=== PATIENT | female | born 1955 | race Caucasian/White ===

== ENCOUNTER → 2018-01-08 | Outpatient (CLI) | payer MEDICARE ==
[~2018-01-08] MED LIST: ABILIFY5 MG PO; AMITIZA24 MCG PO; AMLODIPINE BESYL5 MG PO; ATENOLOL50 MG PO; BENTYL10 MG PO; BUSPIRONE HCL10 MG PO; CATAPRES-TTS 11 EACH TD; CITALOPRAM HBR40 MG PO; CLOBETASOL PROP15 G1; CLONAZEPAM0.5 MG PO; CYMBALTA60 MG PO; ENALAPRIL 20 MG; ENALAPRIL MALEA20 MG PO; ENALAPRIL PO; FENOFIBRATE200 MG PO; FUROSEMIDE40 MG PO; LOVAZA1 GM PO; MELOXICAM15 MG PO; NEURONTIN300 MG PO; NORVASC10 MG PO; OXYCODONE HCL30 MG PO; OXYMORPHONE HCL10 MG PO; PERCOCET 10-321 EACH; POTASSIUM CHLO20 ME1 PO; PRILOSEC OTC20 MG PO; PROAIR HFA INH8.5 GM INH; ROPINIROLE HCL0.5 MG PO; SUBOXONE 8 MG-1 EAC2 SL; VASOTEC10 M1 PO; ZOFRAN4 MG PO; buspar; suboxone
--- NOTE | 2018-01-08 14:27 | Diagnostic Imaging Report ---
TECHNIQUE: Magnetic resonance imaging of the RIGHT KNEE was performed WITHOUT injected contrast. HISTORY: Right knee pain COMPARISON: None available. FINDINGS: LIGAMENTS AND TENDONS: ACL: Intact PCL: Intact Collateral ligaments: Intact Iliotibial band: Unremarkable Popliteal tendon: Intact Extensor mechanism: Intact JOINT: Menisci: Medial: Partial medial meniscectomy with remnant posterior horn and root attachment. Mild meniscal extrusion. Probable free margin horizontal tear of the posterior body/horn coronal image 12. Lateral: Probable free margin horizontal tear of the body/posterior horn coronal image 13. Articular Cartilage: Medial Compartment: Diffuse partial thickness cartilage loss with high-grade erosion at the medial joint line. Lateral Compartment: Diffuse partial thickness cartilage loss. Patellofemoral Compartment: No focal defect. Joint Fluid: Trace joint effusion. BONE: No focal or infiltrative bone marrow replacing abnormality. No acute fracture. SOFT TISSUES: Otherwise, unremarkable. IMPRESSION: Medial meniscus partial meniscectomy predominantly involving the posterior horn with remnant meniscal tissue. Medial and lateral meniscus probable horizontal free margin tearing of the body and posterior horn. Medial tibiofemoral compartment predominant cartilage loss with subchondral edema at the joint line. Signed by: Dr. Speedy Hauser M.D. on 01/08/2018 2:24 PM
== END ==
LOC: MRI 13:26
PROVIDERS: ATTEND Specialist
DX: S83.241A Other tear of medial meniscus, current injury, right knee, initial encounter (principal)

== ENCOUNTER 2018-06-07 15:44 | Inpatient (IN) | payer MEDICARE ==
[~2018-06-07] VITALS: Ht 167.6 cm; Wt 98.9 kg
[2018-06-07] MEDS ORDERED: ALBUTEROL SULF 0.083% NEB SOLN 3 ML NEB NEB STA (16:05)
[2018-06-07] MEDS ORDERED: IPRATROPIUM BROMIDE 0.02% 2.5 ML NEB NEB STA (16:05)
[2018-06-07] MEDS ORDERED: METHYLPREDNISOLONE SOD SUCC 125 MG/2ML VIAL IV ONE (16:15)
[2018-06-07] MEDS ORDERED: SODIUM CHLORIDE FLUSH 10 ML SYR INJ PRN (16:15)
[2018-06-07 16:22] LABS: BASOPHILS # (AUTO) 0.1 (0.0-0.1); BASOPHILS % 0.7 % (0.0-1.0); EOSINOPHILS # (AUTO) 0.3 (0.0-0.4); EOSINOPHILS % 2.9 % (0.0-6.0); HEMATOCRIT 31.6 % (34.2-44.1); HEMOGLOBIN 10.1 g/dL (12.0-16.0); LYMPHOCYTES % 31.8 % (18.0-39.1); MEAN CORPUSCULAR HEMOGLOBIN 30.4 pg (28-32); MEAN CORPUSCULAR VOLUME 95.2 fL (81-99); MONOCYTES # (AUTO) 0.7 (0.2-0.8); MONOCYTES % 6.9 % (4.4-11.3); NEUTROPHILS # (AUTO) 5.4 (2.1-6.9); NEUTROPHILS % 57.1 % (38.7-80.0); PLATELET COUNT 442 x10e3/uL (140-360); RED BLOOD COUNT 3.32 x10e6/uL (3.6-5.1); RED CELL DISTRIBUTION WIDTH 15.1 % (11.7-14.4)
[2018-06-07 16:37] LABS: ALBUMIN 3.4 g/dL (3.5-5.0); ANION GAP 12.5 mmol/L (8-16); CALCIUM 9.6 mg/dL (8.4-10.2); CREATININE, SERUM 1.03 mg/dL (0.57-1.11); MAGNESIUM 2.2 MG/DL (1.3-2.1); POTASSIUM 4.5 mmol/L (3.5-5.1)
[2018-06-07] MEDS ORDERED: SODIUM CHLORIDE 0.9% 500ML 500 ML ONE (16:38)
[2018-06-07 16:43] LABS: CREATINE KINASE MB 1.7 ng/mL (0-5.0)
[2018-06-07] MEDS ORDERED: SODIUM CHLORIDE 0.9% 500ML 500 ML IV ONE (16:45)
--- NOTE | 2018-06-07 17:14 | Diagnostic Imaging Report ---
History:Weakness Comparison studies:None Technique: Axial images were obtained from the skull base to the vertex. Coronal and sagittal images reconstructed from the axial data. Intravenous contrast: None Dose modulation, iterative reconstruction, and/or weight based adjustment of the mA/kV was utilized to reduce the radiation dose to as low as reasonably achievable. Findings: Scalp/skull: No abnormalities. Extra-axial spaces: No masses. No fluid collections. Brain sulci: Mildly prominent. Ventricles: Mild compensatory dilatation. No hydrocephalus. Parenchyma: Few hypodensities in the supratentorial white matter are small vessel ischemic changes. No masses, hemorrhage, acute or chronic cortical vascular insults. Sellar/suprasellar region: No abnormalities. Craniocervical junction: Patent foramen magnum. No Chiari one malformation. Incidental findings: Atherosclerotic calcifications in the carotid siphons . Impression: No acute abnormalities. Chronic findings: 1. Mild generalized volume loss. 2. Mild supratentorial white matter small vessel ischemic changes. Signed by: DR Doroteo Contreras M.D. on 06/07/2018 5:10 PM
[2018-06-07] MEDS ORDERED: LISINOPRIL10 MG PO (17:28)
[2018-06-07] MEDS ORDERED: ALDACTONE25 MG PO (17:28)
[2018-06-07] MEDS ORDERED: METOPROLOL SUCC25 MG PO (17:28)
[2018-06-07] MEDS ORDERED: XARELTO20 MG PO (17:28)
[2018-06-07] MEDS ORDERED: DILTIAZEM HCL60 MG PO (17:28)
[2018-06-07] MEDS ORDERED: AMIODARONE HCL200 MG PO (17:28)
[2018-06-07] MEDS ORDERED: SUBOXONE 8 MG-1 EAC2 (17:33)
[2018-06-07] MEDS ORDERED: MYRBETRIQ50 MG PO (17:33)
[2018-06-07 17:50] LABS: ABG PCO2 50 mmHg (41-51); ABG PH 7.35 (7.31-7.41); ABG PO2 69 mmHg (80-105)
[2018-06-07 17:51] LABS: ABG HCO3 28 mmol/L (23-28)
[2018-06-07] MEDS ORDERED: DIPHENHYDRAMINE HCL INJ 50 MG/ML VIAL IV PRN (18:00)
[2018-06-07] MEDS ORDERED: ACETAMINOPHEN 325 MG TAB PO PRN (18:00)
[2018-06-07] MEDS ORDERED: ZOLPIDEM TARTRATE 5 MG TAB PO PRN (18:00)
[2018-06-07] MEDS ORDERED: ENALAPRILAT IV INJ 1.25 MG/ML VIAL IV PRN (18:00)
[2018-06-07] MEDS ORDERED: ONDANSETRON HCL INJ 2 MG/ML VIAL IV PRN (18:00)
[2018-06-07] MEDS ORDERED: CLONIDINE HCL 0.1 MG TAB PO PRN (18:00)
[2018-06-07] MEDS ORDERED: MORPHINE SULFATE INJ 4 MG/ML INJ IV PRN (18:00)
[2018-06-07] MEDS ORDERED: ALBUTEROL/IPRATROPIUM 3 ML NEB NEB PRN (18:00)
--- NOTE | 2018-06-07 18:02 | Diagnostic Imaging Report ---
Examination: Single AP view of the chest. COMPARISON: Chest 2 views 03/25/2018 INDICATION: Shortness of breath IMPRESSION: 1. Lines and Tubes: None 2. Lungs are mildly hypoinflated. Stable blunting of the right lateral costophrenic sulcus, system with previously visualized scarring. No consolidation. 3. Cardiomediastinal silhouette is normal. Central vascular crowding. 4. No acute bony abnormalities. Signed by: Dr. Herbie Ochoa M.D. on 06/07/2018 5:59 PM
[2018-06-07] MEDS ORDERED: CLONAZEPAM 0.5 MG TAB PO PRN (18:45)
[2018-06-07] MEDS: CEFTRIAXONE SOD 1 GM VIAL IV SCH (19:06)
[2018-06-07] MEDS: AZITHROMYCIN 500MG/SOD CHL 0.9% 250ML BAG IV SCH (19:09)
[2018-06-07 19:22] LABS: CREATINE KINASE 81 IU/L (29-168)
[2018-06-07 19:43] VITALS: BP 119/67
[2018-06-07 19:45] VITALS: BP 119/67
[2018-06-07] MEDS ORDERED: GABAPENTIN 300 MG CAP PO SCH (21:00)
[2018-06-07] MEDS: FENOFIBRATE 145 MG TAB PO SCH (21:00)
[2018-06-07] MEDS: ROPINIROLE HCL 0.25 MG TAB PO SCH (21:00)
[2018-06-07] MEDS: DULOXETINE HCL 30 MG DELAYED RELEASE PO SCH (21:00)
[2018-06-07] MEDS: METHYLPREDNISOLONE SOD SUCC 125 MG/2ML VIAL IV SCH (21:45)
[2018-06-07] MEDS ORDERED: METHYLPREDNISOLONE SOD SUCC 125 MG/2ML VIAL IV SCH (22:00)
--- NOTE | 2018-06-07 23:36 | Consultation ---
DATE OF CONSULTATION: June 07, 2018 PULMONARY/CRITICAL CARE CONSULTATION REFERRING PHYSICIAN: Dr. Leonardo Peng. CHIEF COMPLAINT: Worsening dyspnea and confusion. HISTORY OF PRESENT ILLNESS: The patient is a 62-year-old woman. She has a history of severe COPD. She uses oxygen at home as well as nebulizers and bronchodilators. She required hospitalization at [facility] in March and had subsequent stay at [facility]. She now returns complaining of worsening dyspnea and congestion. She is coughing up some discolored phlegm. She also notes swelling in her legs and some confusion. She does not have any chest pain. PAST MEDICAL HISTORY: 1. COPD as noted above. 2. Obstructive sleep apnea with inability to tolerate CPAP. 3. Chronic back pain. 4. Peripheral vascular disease. ALLERGIES: THE PATIENT IS ALLERGIC TO SULFA AND CONTRAST DYE. SURGICAL HISTORY: Noncontributory. SOCIAL HISTORY: The patient quit smoking. She does not drink alcohol. FAMILY HISTORY: Noncontributory. REVIEW OF SYSTEMS: The patient reports some confusion. She does not complain of headache or sore throat. She has no neck pain. She denies any chest pain. She notes worsening dyspnea and congestion. Her abdomen is not painful. She has no nausea or vomiting. She does have leg swelling. She has diffuse weakness, but no focal complaints. PHYSICAL EXAMINATION: VITAL SIGNS: The blood pressure is 98/64 and the pulse ox is 95% on 3 L. Her pulse rate is 65 and she is afebrile. HEENT: Shows no facial swelling or erythema. The nasal mucosa is normal. The oropharynx is normal. LYMPHATIC: Shows no submandibular, cervical or supraclavicular adenopathy. CARDIAC: Reveals regular rate and rhythm with normal S1 and S2. There are no murmurs or rubs. LUNGS: Auscultation reveals rhonchorous breath sounds bilaterally. There is no wheezing. ABDOMEN: Soft, nontender. There is no rebound or guarding. EXTREMITIES: Shows 1 to 2+ leg edema. NEUROLOGIC: Shows some weakness, but no focal abnormalities. LABORATORY DATA: The white blood cell count is 9.5 and hemoglobin is 10.1. The platelet count is 442. The BUN to creatinine ratio is 23 to 1.03. The other electrolytes are within normal limits. The magnesium is 2.2. The blood gas is 7.35 with a CO2 of 50 and an O2 69. The bicarbonate is 28. RADIOGRAPHIC DATA: Chest x-ray shows cardiomegaly and some blunting of the right costophrenic angle. There are no acute abnormalities. CT scan of the head shows some generalized volume loss and some supratentorial small vessel changes. IMPRESSION: 1. Jtmjy-lt-rzgjuhz respiratory failure. 2. Chronic obstructive pulmonary disease with acute exacerbation. 3. Cor pulmonale. 4. Atrial fibrillation in the past. PLAN: 1. IV Solu-Medrol and bronchodilators. 2. Antibiotics. 3. Consider diuretics for leg edema and cor pulmonale. 4. Physical therapy. 5. Dietary evaluation. 6. DVT prophylaxis. Job#: [id number]
[2018-06-07 23:51] VITALS: BP 92/53
[2018-06-08] VITALS (59 sets, daily range): BP systolic 76–153; BP diastolic 42–101
[2018-06-08 01:41] LABS: CREATINE KINASE MB 1.3 ng/mL (0-5.0)
[2018-06-08] MEDS ORDERED: SODIUM CHLORIDE 0.9% 250ML 250 ML ONE (05:14)
[2018-06-08] MEDS ORDERED: SODIUM CHLORIDE 0.9% 1000ML 1,000 ML IV SCH (05:15)
[2018-06-08] MEDS ORDERED: SODIUM CHLORIDE 0.9% 250ML 250 ML IV ONE (05:15)
[2018-06-08] MEDS ORDERED: ACETAMINOPHEN 325 MG TAB PO PRN (05:30)
[2018-06-08 05:40] LABS: BASOPHILS % 0.2 % (0.0-1.0); HEMATOCRIT 30.6 % (34.2-44.1); HEMOGLOBIN 9.9 g/dL (12.0-16.0); LYMPHOCYTES # (AUTO) 1.3 (1.0-3.2); LYMPHOCYTES % 15.2 % (18.0-39.1); MEAN CORPUSCULAR HGB CONC 32.4 g/dL (31-35); MEAN CORPUSCULAR VOLUME 95.9 fL (81-99); MONOCYTES # (AUTO) 0.1 (0.2-0.8); NEUTROPHILS % 82.9 % (38.7-80.0); PLATELET COUNT 435 x10e3/uL (140-360); RED BLOOD COUNT 3.19 x10e6/uL (3.6-5.1); RED CELL DISTRIBUTION WIDTH 14.8 % (11.7-14.4)
[2018-06-08 05:53] LABS: AMPHETAMINES SCREEN,URINE NEGATIVE (NEGATIVE); BENZODIAZEPINES SCREEN,URINE NEGATIVE (NEGATIVE); PHENCYCLIDINE SCREEN,URINE NEGATIVE (NEGATIVE)
[2018-06-08 06:08] LABS: ALANINE AMINOTRANSFERASE < 6 IU/L (0-55); ALBUMIN/GLOBULIN RATIO 0.9 (0.8-2.0); ALKALINE PHOSPHATASE 48 IU/L (40-150); ANION GAP 9.4 mmol/L (8-16); BLOOD UREA NITROGEN 18 mg/dL (7-26); BUN/CREATININE RATIO 24 (6-25); CALCIUM 9.3 mg/dL (8.4-10.2); CARBON DIOXIDE 30 mmol/L (22-29); CHLORIDE 103 mmol/L (98-107); CREATININE, SERUM 0.76 mg/dL (0.57-1.11); EST GLOMERULAR FILTRATION RATE > 60 ML/MIN (60-); GLUCOSE 160 mg/dL (74-118); POTASSIUM 4.4 mmol/L (3.5-5.1); SODIUM 138 mmol/L (136-145)
[2018-06-08] MEDS ORDERED: SODIUM CHLORIDE 0.9% 1000ML 1,000 ML IV ONE (06:18)
--- NOTE | 2018-06-08 06:19 | Diagnostic Imaging Report ---
EXAMINATION: CHEST SINGLE (PORTABLE) INDICATION: Shortness of breath ^SOB ^Y COMPARISON: 06/07/2018 FINDINGS: AP view TUBES and LINES: None. LUNGS: Lungs are well inflated. Increased right basilar airspace opacity. There is no evidence of pulmonary edema. PLEURA: Stable blunting of the right costophrenic sulcus, likely representing scarring. HEART AND MEDIASTINUM: The cardiomediastinal silhouette is unremarkable. BONES AND SOFT TISSUES: No acute osseous lesion. Faintly visualized thoracic fusion hardware. Soft tissues are unremarkable. UPPER ABDOMEN: No free air under the diaphragm. IMPRESSION: Increased right basilar airspace opacity likely representing atelectasis with developing pneumonia not excluded. Signed by: DR. Lenin Reid MD on 06/08/2018 6:16 AM
[2018-06-08 06:25] LABS: MAGNESIUM 2.2 MG/DL (1.3-2.1); PHOSPHORUS 3.7 MG/DL (2.3-4.7)
[2018-06-08 06:29] LABS: CLARITY,URINE HAZY (CLEAR); COLOR,URINE YELLOW (YELLOW)
[2018-06-08 06:30] LABS: BACTERIA,URINE FEW /HPF; BILIRUBIN,URINE NEGATIVE (NEGATIVE); EPITHELIAL CELLS,URINE FEW /LPF; KETONES,URINE NEGATIVE (NEGATIVE); LEUKOCYTE ESTERASE ,URINE NEGATIVE (NEGATIVE); NITRITE,URINE NEGATIVE (NEGATIVE); PROTEIN,URINE DIPSTICK TRACE (NEGATIVE); URINE UROBILINOGEN 0.2 mg/dL (0.2 - 1); WBC,URINE (MAN) 0-5 /HPF (0-5)
--- NOTE | 2018-06-08 07:10 | History and Physical ---
I am covering for Dr. Peng. HISTORY OF PRESENT ILLNESS: Ms. Kraus is an 62-year-old female with history apparently of COPD, sleep apnea, chronic back pain that came to the emergency room, complained of shortness of breath and dyspnea. She also was coughing, have lower extremity edema and patient started apparently getting confused. PAST MEDICAL HISTORY: She has COPD, chronic back pain, peripheral vascular disease, obstructive sleep apnea, but she has not been able to tolerate CPAP. ALLERGIES: SHE IS ALLERGIC TO DYE AND SULFA. SOCIAL HISTORY: She quit smoking a couple of months ago. She does not drink alcohol. She lives at home by herself apparently. PHYSICAL EXAMINATION: Today. VITAL SIGNS: I was called because blood pressure started going down and oxygenation was not good, so patient was transferred to ICU. I am seeing the patient in the ICU right now. She is on BiPAP. Blood pressure still low 86/58. Heart rate is around 86 per minute. Oxygenation 96%. HEART: Regular rate. LUNGS: Decreased breath sounds. ABDOMEN: Distended and soft. LOWER EXTREMITIES: Bilateral edema. NEURO: Since patient is on BiPAP, it is very difficult to evaluate her mental status, but as per nurse on the floor, patient was also a little confused. BLOOD WORK: White count 8.38, hemoglobin 9.9, hematocrit 30.6. Potassium 4.4, creatinine 0.76, glucose 160, magnesium 2.2. First sets of cardiac enzymes negative. Second set is pending. Toxicology screen negative. Urine did not show any white blood cells. Blood cultures and urine cultures are pending. Head CT done yesterday shows no acute findings. Chest x-ray done today shows increased right basilar airspace opacity representing atelectasis with developing pneumonia not excluded. ASSESSMENT AND PLAN 1. Ivsyl-tm-fvagnew respiratory failure on the bypass. 2. Chronic obstructive pulmonary disease exacerbation. 3. Cor pulmonale. 4. Probably pneumonia. 5. History of atrial fibrillation. 6. Chronic back pain. PLAN: At present time with this patient is continue BiPAP. Continue to monitor respiratory status, IV steroids, neb treatments. Continue IV antibiotics, diuresis for lower extremity edema and cor pulmonale. DVT and ulcer prophylaxis. The overall prognosis of the patient is guarded especially due to respiratory condition and impending sepsis. I spent more than 40 minutes examining patient, reviewing emergency room reports, chest x-rays, some lab work. Like I said, the overall prognosis of the patient remains guarded. Job#: [id number] CQ
[2018-06-08 07:15] LABS: CREATINE KINASE MB 1.2 ng/mL (0-5.0)
[2018-06-08] MEDS: MIRABEGRON 50 MG PO SCH (09:00)
[2018-06-08] MEDS: METHYLPREDNISOLONE SOD SUCC 125 MG/2ML VIAL IV SCH ×2 (09:00→21:42)
[2018-06-08 09:06] LABS: ABG PCO2 61 mmHg (41-51); ABG PO2 85 mmHg (80-105)
[2018-06-08 09:07] LABS: ABG HCO3 30 mmol/L (23-28)
[2018-06-08] MEDS: OMEGA 3 POLYUNSAT FATTY ACIDS 1000 MG SOFTGEL PO SCH (09:20)
[2018-06-08] MEDS: RIVAROXABAN 20 MG TABLET PO SCH (09:20)
[2018-06-08] MEDS: AMIODARONE HCL 200 MG TAB PO SCH (09:20)
[2018-06-08] MEDS: FAMOTIDINE 20 MG/2 ML VIAL IV SCH ×2 (09:20→17:00)
[2018-06-08] MEDS: SPIRONOLACTONE 25 MG TAB PO SCH (09:20)
[2018-06-08] MEDS: IBUPROFEN 200 MG TAB PO PRN (12:58)
--- NOTE | 2018-06-08 14:55 | Progress Note ---
DATE: June 08, 2018 PULMONARY/CRITICAL CARE PROGRESS NOTE SUBJECTIVE: Patient was more confused this morning and had low blood pressure. She was transferred to the ICU and started on BiPAP. Her repeat ABG showed pH of 7.3 with a CO2 of 60. PHYSICAL EXAMINATION VITALS: The patient is now in normal sinus rhythm with a rate of 74. Her blood pressure has been ranging from 80/40 to 99/52. Her oxygen saturation is 93%. HEENT: No facial swelling or erythema. The oropharynx is normal. LYMPHATIC: No submandibular, cervical or supraclavicular adenopathy. CARDIAC: Exam reveals a regular rate and rhythm with normal S1 and S2. LUNGS: Auscultation of the lungs reveals clear breath sounds bilaterally. There is no wheezing. ABDOMEN: Soft. Nontender. There is no rebound or guarding. There is 2+ leg edema. IMPRESSION 1. Ioklc-cs-dhkeexe respiratory failure. 2. Chronic obstructive pulmonary disease with acute exacerbation. 3. Chronic cor pulmonale with leg edema. 4. Toxic metabolic encephalopathy. PLAN 1. Continue BiPAP. 2. Hold sedatives and narcotics, which may be worsening her mental status. 3. Continue Solu-Medrol. 4. Continue bronchodilators and antibiotics. 5. Greater than 35 minutes in direct critical care time during 2 separate visits today, one at 8:30 a.m. and one at 2:15 p.m. 6. Case discussed with the patient, nursing staff and neurology. Job#: [id number]
--- NOTE | 2018-06-08 15:24 | Consultation ---
DATE OF CONSULTATION: June 08, 2018 CARDIOLOGY CONSULTATION REASON FOR CONSULTATION: Heart failure and atrial fibrillation. HISTORY OF PRESENT ILLNESS: Ms. Kraus is a 62-year-old woman with a history of morbid obesity, smoking, COPD, paroxysmal atrial fibrillation, chronic venous insufficiency to the lower extremities, hypertension, who presents to [facility] via the emergency department with an episode of shortness of breath. She is also describing intermittent episodes of confusion, which have been ongoing over the last several days. She is currently undergoing evaluation by neurology for this. She was admitted to the intensive care unit with shortness of breath and hypoxic respiratory distress with some improvement in symptoms after initiation of medical therapy. She was put on antibiotics and inhaler therapy. Her blood pressure this morning is on the low side with some readings of systolic in the 80s to 90s. She is currently in sinus rhythm. She denies any chest pain or shortness of breath. When asked about her current complaints, she is repetitively saying she does not feel well, but is unable to specify her symptoms more clearly. REVIEW OF SYSTEMS: A 12-system review negative, except for as noted above. ALLERGIES: SULFA. PAST MEDICAL HISTORY: As per HPI. SOCIAL HISTORY: Smoking. No alcohol or drugs. FAMILY HISTORY: Noncontributory. PHYSICAL EXAMINATION VITALS: Temperature 98.5, heart rate 62, blood pressure 80/42, respiratory rate 14, O2 sat 98% on nasal cannula. BMI is 35.9. GENERAL: In mild distress. Unable to clearly voice her discomfort or concerns. However, seems oriented. NECK: No JVD or carotid bruits. CHEST: Coarse breath sounds. CARDIOVASCULAR: Regular rate and rhythm. Normal S1 and S2. No S3 or S4. No murmurs or rubs. ABDOMEN: Soft and nontender. EXTREMITIES: With trace edema, left more than right lower extremity, which is her known chronic lower extremity presentation. Somewhat asymmetric given her venous insufficiency history. Warm distal extremities. CARDIOVASCULAR MEDICATIONS: Reviewed. 1. Clonidine 0.1 mg b.i.d. 2. Enalapril 1.25 mg q.6 h. IV, held and will be discontinued. 3. Ceftriaxone antibiotic. 4. Normal saline fluids. 5. Azithromycin antibiotic. 6. Albuterol ipratropium nebs. 7. Methylprednisolone 60 mg q.12 h. 8. Amiodarone 200 mg daily. 9. Xarelto 20 mg daily. 10. Spironolactone 75 mg daily. STUDIES: Reviewed. Sodium 138, potassium 4.4, chloride 103, bicarbonate 30, BUN 18, creatinine 0.76, glucose 160. Hemoglobin 9.9, white blood cells 8.3, and platelets 435,000. AST 14, ALT less than 6, alk phos 48, total bilirubin 0.2. ASSESSMENT 1. Hypotension in the setting of recent admission with acute heart failure exacerbation/chronic obstructive pulmonary disease exacerbation. 2. Wzinv-tc-cazgjrl diastolic heart failure. 3. Chronic obstructive pulmonary disease. 4. Transient ischemic attack versus cerebrovascular accident versus metabolic encephalopathy/altered mental status. 5. Paroxysmal atrial fibrillation. 6. Chronic venous insufficiency. RECOMMENDATIONS 1. Discontinue clonidine and enalapril. 2. Observe response in blood pressure. If still hypotension, may initiate Levophed as pressor for systolic blood pressure over 90. 3. Antibiotics ongoing and nebs ongoing. Defer to pulmonary expertise. 4. Hemoglobin 9.9 noted. She has a history of chronic anemia. I think this is close to her last baseline. However, will monitor closely for any signs of overt bleeding. 5. Appreciate neurology input regarding her episodes of confusion. At this point, suspect metabolic encephalopathy. However, CVA/TIA cannot be ruled out. 6. Continue anticoagulation with Xarelto and continue amiodarone to decrease risk of sinus rhythm switched to AFib. 7. Echo reviewed. Preserved left ventricular systolic function. LVEF of 55% to 60%. Mild LVH. No significant valvular abnormalities. 8. Carotid ultrasound reviewed. Mild plaque on 2-D images with no hemodynamically significant stenosis throughout the extracranial carotid artery visualized with vertebrals bilaterally. I thank Dr. Gillespie for the opportunity to participate in the care of Ms. Kraus. Please call with any questions or concerns. Job#: [id number] NEIDA
[2018-06-08 15:27] LABS: CHOL/HDL RATIO 3.1 (3.0-3.6)
[2018-06-08 15:47] LABS: FREE THYROXINE INDEX 1.9973 (1.4-3.8); THYROID STIMULATING HORMONE 0.717 uIU/mL (0.350-4.940)
--- NOTE | 2018-06-08 16:01 | Consultation ---
DATE OF CONSULTATION: June 08, 2018 NEUROLOGY CONSULT HISTORY OF PRESENT ILLNESS: Ms. Kraus is a 62-year-old left-hand dominant woman with a past medical history significant for hypertension, hyperlipidemia, congestive heart failure, and COPD, admitted to [facility] on June 07, 2018, with an acute exacerbation of chronic obstructive pulmonary disease, exacerbation of congestive heart failure, and possible pneumonia. As the patient was being evaluated in the emergency center, as well as the intensive care unit, Ms. Kraus endorsed diplopia and weakness for which the neurology service this consult. Ms. Kraus endorses diplopia beginning approximately 1 month ago. The patient cannot say whether or not the diplopia is monocular or binocular. The diplopia is horizontal. The patient reports seeing objects side by side rather than one on top of the other. As stated above, the diplopia began abruptly approximately 4 weeks ago and is constant. Ms. Kraus has not sought medical attention for further evaluation and treatment of her double vision. Ms. Kraus endorses weakness, which she describes as bilateral knee pain. The pain is described as throbbing and is intermittent. The patient does not know what makes the pain worse. She does not know what makes the pain is better. The pain has been present for approximately 2 weeks. Ms. Kraus does endorse some difficulty with ambulation secondary to the "weakness" in her knees. The patient does not endorse a visual field cut. She does not report dysarthria or aphasia. She does not report a visual field cut, dysarthria, aphasia, facial droop, numbness or tingling, or dizziness. Ms. Kraus does appear mildly confused throughout the encounter. Lastly, Ms. Kraus endorses a headache. The pain is located over the forehead and does not radiate. The pain is described as dual and aching, and is rated a 10/10. Ms. Kraus does report photophobia and phonophobia. She does not report nausea, vomiting, or dizziness. The patient does not have a prior history of migraines or other headaches. She reports today is the first time she has experienced a headache as described above. REVIEW OF SYSTEMS: Horizontal diplopia, weakness of the legs, which is further described as bilateral knee pain, pain in the neck, midback, and low back, headache, photophobia, phonophobia. Otherwise, the 12-point review of systems is negative. PAST MEDICAL HISTORY: Hypertension, hyperlipidemia, congestive heart failure, chronic obstructive pulmonary disease. PAST SURGICAL HISTORY: Lumbar spine surgery times 3. PAST HOSPITALIZATIONS: Surgeries/procedures as listed, childbirth. FAMILY MEDICAL HISTORY: The patient's paternal and maternal grandparents are . Their medical histories are unknown. The patient's father is from natural causes. Ms. Kraus's mother is . Her medical history is unknown. Ms. Kraus has 4 siblings, 3 brothers and 1 sister, all of whom are alive and healthy. The patient has 1 child, a son, who is alive and healthy. SOCIAL HISTORY: Ms. Kraus is a . She is retired. The patient does report a history of tobacco use, but quit smoking cigarettes 4-5 months ago. The patient does not report alcohol or recreational drug use. HOME MEDICATIONS 1. Amiodarone 200 mg by mouth daily. 2. Abilify 5 mg by mouth at bedtime daily. 3. Suboxone. 4. Clonazepam 0.5 mg by mouth as needed for anxiety. 5. Diltiazem 120 mg by mouth daily. 6. Cymbalta 120 mg by mouth at bedtime daily. 7. Fenofibrate 200 mg by mouth at bedtime daily. 8. Furosemide 20 mg by mouth daily. 9. Neurontin 800 mg by mouth 3 times daily. 10. Lisinopril 20 mg by mouth twice daily. 11. Metoprolol 25 mg. 12. Myrbetriq 50 mg by mouth daily. 13. Lovaza 1 g by mouth twice a day. 14. Xarelto 20 mg by mouth. 15. Requip 0.5 mg by mouth at bedtime daily. 16. Aldactone 25 mg by mouth daily. ALLERGIES: SULFA. NO KNOWN FOOD ALLERGIES. NO KNOWN ALLERGIES TO LATEX. THE PATIENT DOES HAVE A DOCUMENTED ALLERGY TO CONTRAST. NO FURTHER DETAILS ARE GIVEN. PHYSICAL EXAMINATION VITAL SIGNS: Height 66 inches, weight 223 pounds, BMI 36 kg per meter squared. Blood pressure 80/42 mmHg, pulse 62 beats per minute, respiratory rate 14 breaths per minute, oxygen saturation 98% on BiPAP. GENERAL: Patient is awake and alert. Moderately distressed secondary to pain. Obese. HEENT: Normocephalic and atraumatic. Pupils are equal, round, and reactive to light. Moist mucous membranes. NECK: Supple. No appreciable thyromegaly. No appreciable carotid bruits. CARDIOVASCULAR: S1 and S2. Regular rate and rhythm. No murmurs, rubs, or gallops. RESPIRATORY: Clear to auscultation bilaterally. No wheezes, rhonchi or rales. EXTREMITIES: The skin is warm and dry. No clubbing, cyanosis, or edema. The posterior tibial and dorsalis pedis pulses are 1+ and symmetric. SKIN: No rashes or lesions. NEUROLOGIC: Memory/attention: The patient is awake and alert, oriented to person, only. CRANIAL NERVES: Cranial nerve 1 not tested. Cranial nerve II, III, IV, and : Pupils are equal and round, react briskly to light (from 6 mm to 4 mm). Extraocular movements are intact except as follows: Incomplete abduction of the left eye. No nystagmus. Cranial nerve V: Sensation to light touch is intact in the bilateral V1 through V3 distributions. Strength of the temporalis and masseter muscles is within normal limits. Cranial nerve VII: The face is symmetric as are all facial movements. Strength is within normal limits. Cranial nerve VIII: Hearing is intact to finger rub bilaterally. Cranial nerve IX and X: The soft palate elevates equally and symmetrically. Cranial nerve XI: Normal strength of the bilateral sternocleidomastoid and trapezius muscles. Cranial nerve XII: The tongue protrudes midline and moves symmetrically from side to side. STRENGTH: Bulk is normal. The patient's ability to participate in a full assessment of strength is limited. Ms. Kraus maintains both arms against gravity for more than 10 seconds each without drift. Ms. Kraus maintains both legs against gravity for more than 5 seconds each without drift. Strength is grossly 4/5. Tone is normal. DTRs: Are 3+ and symmetric at the triceps, biceps, brachioradialis, and patellas. Deep tendon reflexes are trace and symmetric at the Achilles. Plantar responses are flexor bilaterally. SENSATION: Intact to light touch in both arms and both legs. CEREBELLAR: Unable to assess secondary to encephalopathy. GAIT: Deferred. SPEECH: Spontaneous speech is mildly dysarthric without aphasia. Repetition is intact. INVOLUNTARY MOVEMENTS: None. PRONATOR DRIFT: None. LABORATORY DATA: The patient's most recent comprehensive metabolic panel reveals a carbon dioxide of 30, serum glucose of 160, total protein 6.4, albumin 3. Lactic acid 6. Phosphorus 3.7. Magnesium 2.2. Cardiac enzymes are negative times 4. B-natriuretic peptide 119. The CBC with differential and platelets reveals a white blood cell count of 8.38 with 82.9% neutrophils, 15.2% lymphocytes, 1% monocytes, and zero percent eosinophils, and 0.2% basophils. The hemoglobin and hematocrit are 9.9 and 30.6, respectively. The platelet count is of 435,000. An arterial blood gas reveals pH of 7.3, pCO2 61, pO2 of 85, bicarbonate of 30, O2 saturation of 95, base excess of 4, FIO2 of 40. A urinalysis revealed trace protein, 1+ blood, and 11-20 red blood cells. A urine drug screen was negative. Blood and urine cultures were collected on June 08, 2018, and are pending. DIAGNOSTIC STUDIES 1. Chest x-ray on June 07, 2018, lines and tubes none. 2. Lungs are mildly hypoinflated. Stable blunting of the right lateral costophrenic sulcus. System with previously visualized scarring. No consolidation. 3. Cardiomediastinal silhouette is normal. Central vascular crowding. 4. No acute bony abnormalities. CT of the brain without contrast on June 07, 2018, On my review, there is no evidence of recent large territorial ischemia, hemorrhage, mass, or mass effect. There is diffuse cerebral atrophy with compensatory dilatation of the ventricles, more than expected for age. There are findings compatible with mild to moderate chronic small vessel ischemic disease. Electrocardiogram on June 08, 2018, normal sinus rhythm at 65 beats per minute. Echocardiogram on June 08, 2018, ejection fraction 55%. Left ventricular hypertrophy. Trace mitral and tricuspid regurgitation. Bilateral carotid artery ultrasound with Doppler on June 08, 2018, atherosclerosis without hemodynamically significant stenosis at the bilateral common carotid arteries, carotid bulbs, and carotid bifurcations. Flow is antegrade in the bilateral vertebral arteries. Chest x-ray on June 08, 2018, increased right basilar airspace opacity likely representing atelectasis with developing pneumonia not excluded. ASSESSMENT AND PLAN: Ms. Kraus is a 62-year-old left-hand dominant woman with an extensive past medical history admitted to [facility] on June 08, 2018, with acute exacerbation of chronic obstructive pulmonary disease, exacerbation of congestive heart failure, possible pneumonia, and a left 6th cranial nerve palsy, likely secondary to ischemia. On neurological examination, the patient is encephalopathic. The only other significant finding is incomplete abduction of the left eye on assessment of extraocular movements. Otherwise, the patient's neurological examination is nonfocal. The patient's laboratory data and other diagnostic studies have been reviewed and are documented above. Recommendations for further evaluation of ischemic cranial nerve palsy are as follows: 1. A lipid panel and hemoglobin A1c will be ordered. 2. An MRI of the brain without contrast has been ordered. This study should be completed when the patient is able to tolerate it. 3. In the interim, treatment with Xarelto 20 mg may be continued. However, due to the occurrence of an ischemic cranial neuropathy while on Xarelto, treatment with another anticoagulant medication should be considered. 4. At present, Ms. Kraus is hypotensive. Ideally, permissive hypertension should be allowed following ischemia. However, as detailed in the history of present illness, the onset of diplopia occurred a few weeks ago. Therefore, the patient's blood pressures may be normalized as tolerated. 5. The patient's goal total cholesterol is less than 200 with a LDL of less than 70. Follow up the results of the lipid panel. Ms. Kraus's home medications may be continued in the interim. 6. The patient's goal hemoglobin A1c is less than 7. Follow up the results of the hemoglobin A1c. Tight glycemic control is recommended while the patient is in the hospital. 7. Speech and physical therapy consultations have been ordered. Ms. Kraus should be evaluated as tolerated. 8. GI prophylaxis with Pepcid 20 mg intravenously twice daily. DVT prophylaxis with Xarelto as prescribed. As stated above, Ms. Kraus is encephalopathic. Ms. Kraus probably has a metabolic encephalopathy, which is multifactorial. The acute exacerbation of COPD, the acute exacerbation of congestive heart failure, and possible pneumonia would all explain the patient's confusion. Additional blood work will be ordered to evaluate for other possible causes of encephalopathy. This blood work will include: TSH, ammonia level, vitamin B1 level, vitamin B12 level, and rapid plasma reagin. As mentioned previously, blood and urine cultures have been collected and are pending. In the interim, current treatment should be continued. Treatment with sedative/hypnotic and pain medication should be limited as these will alter the patient's sensorium. Environmental cues should be utilized to limit the occurrence of delirium. Defer treatment of the remaining medical comorbidities to the primary and other services following the patient. Thank you for this consultation. I will continue to follow the patient while she remains in the hospital. Time spent 70 minutes. Job#: [id number] NEIDA NATHAN
[2018-06-08] MEDS: QUETIAPINE FUMARATE 25 MG TAB PO PRN (16:08)
--- NOTE | 2018-06-08 18:08 | Diagnostic Imaging Report ---
Examination: Single AP view of the chest. COMPARISON: Portable chest 06/08/2018 INDICATION: Central line placement. IMPRESSION: 1. Lines and Tubes: Interval placement of right-sided PICC line, which has its distal tip projecting in the proximal to mid SVC. 2. Otherwise, no significant interval change since the prior exam. Signed by: Dr. Herbie Ochoa M.D. on 06/08/2018 6:04 PM
[2018-06-08] MEDS: CEFTRIAXONE SOD 1 GM VIAL IV SCH (18:20)
[2018-06-08] MEDS: AZITHROMYCIN 500MG/SOD CHL 0.9% 250ML BAG IV SCH (18:55)
[2018-06-08] MEDS: FENOFIBRATE 145 MG TAB PO SCH (21:42)
[2018-06-08] MEDS: ROPINIROLE HCL 0.25 MG TAB PO SCH (21:42)
[2018-06-08] MEDS: DULOXETINE HCL 30 MG DELAYED RELEASE PO SCH (21:42)
[2018-06-09] VITALS (84 sets, daily range): BP systolic 85–143; BP diastolic 50–115
[2018-06-09 04:41] LABS: BASOPHILS % 0.1 % (0.0-1.0); HEMATOCRIT 30.1 % (34.2-44.1); HEMOGLOBIN 9.7 g/dL (12.0-16.0); LYMPHOCYTES % 7.2 % (18.0-39.1); MEAN CORPUSCULAR HEMOGLOBIN 30.6 pg (28-32); MEAN CORPUSCULAR HGB CONC 32.2 g/dL (31-35); MONOCYTES # (AUTO) 0.5 (0.2-0.8); MONOCYTES % 3.8 % (4.4-11.3); NEUTROPHILS # (AUTO) 12.4 (2.1-6.9); PLATELET COUNT 482 x10e3/uL (140-360); RED BLOOD COUNT 3.17 x10e6/uL (3.6-5.1); RED CELL DISTRIBUTION WIDTH 14.6 % (11.7-14.4)
[2018-06-09 05:03] LABS: ALANINE AMINOTRANSFERASE 6 IU/L (0-55); ALBUMIN/GLOBULIN RATIO 0.9 (0.8-2.0); ALKALINE PHOSPHATASE 46 IU/L (40-150); ANION GAP 10.3 mmol/L (8-16); BUN/CREATININE RATIO 36 (6-25); CALCIUM 9.7 mg/dL (8.4-10.2); CARBON DIOXIDE 31 mmol/L (22-29); CHLORIDE 103 mmol/L (98-107); CREATININE, SERUM 0.81 mg/dL (0.57-1.11); EST GLOMERULAR FILTRATION RATE > 60 ML/MIN (60-); GLUCOSE 141 mg/dL (74-118); POTASSIUM 4.3 mmol/L (3.5-5.1); SODIUM 140 mmol/L (136-145)
[2018-06-09 05:04] LABS: BLOOD UREA NITROGEN 29 mg/dL (7-26)
[2018-06-09] MEDS: MIRABEGRON 50 MG PO SCH (09:00)
[2018-06-09] MEDS: FAMOTIDINE 20 MG/2 ML VIAL IV SCH ×2 (12:00→20:24)
[2018-06-09] MEDS: OMEGA 3 POLYUNSAT FATTY ACIDS 1000 MG SOFTGEL PO SCH (12:00)
[2018-06-09] MEDS: METHYLPREDNISOLONE SOD SUCC 125 MG/2ML VIAL IV SCH ×2 (12:00→20:24)
[2018-06-09] MEDS: RIVAROXABAN 20 MG TABLET PO SCH (12:00)
[2018-06-09] MEDS: AMIODARONE HCL 200 MG TAB PO SCH (12:00)
[2018-06-09] MEDS: SPIRONOLACTONE 25 MG TAB PO SCH (12:00)
[2018-06-09] MEDS ORDERED: ACETAZOLAMIDE SODIUM 500 MG/VIAL IV ONE (14:00)
--- NOTE | 2018-06-09 16:45 | Progress Note ---
DATE: June 09, 2018 CARDIOLOGY PROGRESS NOTE SUBJECTIVE: No complaints other than the confusion. OBJECTIVE VITALS: Temperature 97.8, heart rate 94, blood pressure 116/73, respiratory rate 18, O2 sat 99%. GENERAL: In no acute distress. CHEST: Coarse breath sounds. CARDIOVASCULAR: Regular rate and rhythm. Normal S1, S2. ABDOMEN: Soft. EXTREMITIES: Trace edema. CARDIOVASCULAR MEDICATIONS: Reviewed. 1. Amiodarone 200 mg daily. 2. Xarelto 20 mg daily. 3. Spironolactone 25 mg daily. 4. Fenofibrate 145 mg daily. 5. q.h.s. 6. [place]-3 fatty acids 1 tab at bedtime daily. STUDIES: Reviewed. Creatinine is 0.8, potassium 4.3, bicarbonate 31, hemoglobin 9.7, white blood cells 14.1, platelets 482. Normal transaminases. ASSESSMENT 1. Paroxysmal atrial fibrillation. 2. [id number] diastolic heart failure. 3. Encephalopathy. 4. Pneumonia. 5. Chronic obstructive pulmonary disease exacerbation. RECOMMENDATIONS 1. Continue current cardiovascular medications. at this point. Monitor renal function at base, monitor on telemetry for episode of paroxysmal atrial fibrillation. 2. Blood pressure overall somewhat better today. Antibiotics deferred to primary services expertise. Job#: [id number] DANITA
[2018-06-09] MEDS: FENOFIBRATE 145 MG TAB PO SCH (20:24)
[2018-06-09] MEDS: CEFTRIAXONE SOD 1 GM VIAL IV SCH (20:24)
[2018-06-09] MEDS: ROPINIROLE HCL 0.25 MG TAB PO SCH (20:24)
[2018-06-09] MEDS: DULOXETINE HCL 30 MG DELAYED RELEASE PO SCH (20:24)
[2018-06-09] MEDS: AZITHROMYCIN 500MG/SOD CHL 0.9% 250ML BAG IV SCH (20:24)
[2018-06-09] MEDS: SIMVASTATIN 20 MG TAB PO SCH (20:24)
[2018-06-09] MEDS: QUETIAPINE FUMARATE 25 MG TAB PO PRN (21:15)
[2018-06-10] VITALS (44 sets, daily range): BP systolic 85–173; BP diastolic 70–109
[2018-06-10 05:26] LABS: BASOPHILS % 0.2 % (0.0-1.0); EOSINOPHILS % 0.1 % (0.0-6.0); HEMOGLOBIN 9.3 g/dL (12.0-16.0); LYMPHOCYTES # (AUTO) 0.9 (1.0-3.2); LYMPHOCYTES % 8.3 % (18.0-39.1); MEAN CORPUSCULAR HEMOGLOBIN 29.9 pg (28-32); MEAN CORPUSCULAR VOLUME 96.5 fL (81-99); MONOCYTES # (AUTO) 0.1 (0.2-0.8); MONOCYTES % 0.7 % (4.4-11.3); NEUTROPHILS # (AUTO) 9.6 (2.1-6.9); NEUTROPHILS % 89.9 % (38.7-80.0); PLATELET COUNT 465 x10e3/uL (140-360); RED BLOOD COUNT 3.11 x10e6/uL (3.6-5.1); RED CELL DISTRIBUTION WIDTH 14.6 % (11.7-14.4)
[2018-06-10 05:44] LABS: ALANINE AMINOTRANSFERASE 6 IU/L (0-55); ALBUMIN/GLOBULIN RATIO 0.9 (0.8-2.0); ALKALINE PHOSPHATASE 40 IU/L (40-150); ANION GAP 9.9 mmol/L (8-16); BLOOD UREA NITROGEN 29 mg/dL (7-26); BUN/CREATININE RATIO 36 (6-25); CALCIUM 9.4 mg/dL (8.4-10.2); CARBON DIOXIDE 29 mmol/L (22-29); CHLORIDE 105 mmol/L (98-107); EST GLOMERULAR FILTRATION RATE > 60 ML/MIN (60-); GLUCOSE 147 mg/dL (74-118); POTASSIUM 3.9 mmol/L (3.5-5.1); SODIUM 140 mmol/L (136-145)
[2018-06-10] MEDS: MIRABEGRON 50 MG PO SCH (09:00)
[2018-06-10] MEDS: OMEGA 3 POLYUNSAT FATTY ACIDS 1000 MG SOFTGEL PO SCH (09:43)
[2018-06-10] MEDS: METHYLPREDNISOLONE SOD SUCC 125 MG/2ML VIAL IV SCH ×2 (09:43→20:35)
[2018-06-10] MEDS: RIVAROXABAN 20 MG TABLET PO SCH (09:43)
[2018-06-10] MEDS: AMIODARONE HCL 200 MG TAB PO SCH (09:43)
[2018-06-10] MEDS: FAMOTIDINE 20 MG/2 ML VIAL IV SCH ×2 (09:43→17:55)
[2018-06-10] MEDS: SPIRONOLACTONE 25 MG TAB PO SCH (09:43)
[2018-06-10 10:30] LABS: ABG HCO3 28 mmol/L (23-28); ABG PCO2 48 mmHg (41-51); ABG PH 7.37 (7.31-7.41); ABG PO2 77 mmHg (80-105)
[2018-06-10] MEDS ORDERED: LISINOPRIL 10 MG TAB ONE (10:31)
[2018-06-10] MEDS ORDERED: LISINOPRIL 10 MG TAB PO SCH (11:00)
--- NOTE | 2018-06-10 17:44 | Progress Note ---
DATE: June 10, 2018 CARDIOLOGY PROGRESS NOTE SUBJECTIVE: Still with some episodes of confusion. Overall feels better. On telemetry, in sinus rhythm. OBJECTIVE VITAL SIGNS: Temperature 97.9, heart rate 81, blood pressure 138/89, respiratory rate 18, and O2 sat 98%. BMI is 35.8. GENERAL: In no acute distress, alert. NECK: No JVD. CHEST: With decreased breath sounds and scattered rhonchi. CARDIOVASCULAR: Regular rate and rhythm. Normal S1 and S2. No S3 or S4. ABDOMEN: Soft. EXTREMITIES: Trace edema. CARDIOVASCULAR MEDICATIONS: Reviewed. 1. Amiodarone 200 mg daily. 2. Eliquis 5 mg every 12 hours. 3. Spironolactone 25 mg daily. 4. Was initiated on lisinopril 10 mg daily, first dose today. 5. Simvastatin 20 mg q.h.s. LAB FINDINGS: Reviewed. Potassium 3.9, bicarbonate 29, creatinine is 0.8, and glucose 147. Hemoglobin 9.3. Normal transaminases. ASSESSMENT 1. Encephalopathy. 2. Pneumonia. 3. Brzgk-cy-yktcpff diastolic heart failure. 4. Paroxysmal atrial fibrillation. 5. Dyslipidemia. 6. Hypertension. RECOMMENDATIONS 1. Decrease lisinopril to 5 mg daily and initiate metoprolol succinate 25 mg daily. 2. Continue rest of cardiovascular medications. 3. Keep on telemetry while in house. 4. Assess confusion improvement in response to treatment for her ongoing medical illness. 5. Appreciate neurology's expert opinion. Job#: [id number] BUCK
[2018-06-10] MEDS: APIXABAN 5 MG TABLET PO SCH (17:55)
[2018-06-10] MEDS: CEFTRIAXONE SOD 1 GM VIAL IV SCH (18:00)
[2018-06-10] MEDS: AZITHROMYCIN 500MG/SOD CHL 0.9% 250ML BAG IV SCH (18:15)
[2018-06-10] MEDS: FENOFIBRATE 145 MG TAB PO SCH (20:35)
[2018-06-10] MEDS: DULOXETINE HCL 30 MG DELAYED RELEASE PO SCH (20:35)
[2018-06-10] MEDS: SIMVASTATIN 20 MG TAB PO SCH (20:35)
[2018-06-10] MEDS: ROPINIROLE HCL 0.25 MG TAB PO SCH (20:35)
[2018-06-11] VITALS (41 sets, daily range): BP systolic 98–194; BP diastolic 59–150
[2018-06-11 04:51] LABS: BASOPHILS % 0.1 % (0.0-1.0); EOSINOPHILS % 0.1 % (0.0-6.0); HEMATOCRIT 31.4 % (34.2-44.1); HEMOGLOBIN 9.9 g/dL (12.0-16.0); LYMPHOCYTES # (AUTO) 0.9 (1.0-3.2); LYMPHOCYTES % 7.6 % (18.0-39.1); MEAN CORPUSCULAR HEMOGLOBIN 29.6 pg (28-32); MEAN CORPUSCULAR HGB CONC 31.5 g/dL (31-35); MEAN CORPUSCULAR VOLUME 93.7 fL (81-99); MONOCYTES # (AUTO) 0.4 (0.2-0.8); MONOCYTES % 3.5 % (4.4-11.3); NEUTROPHILS # (AUTO) 10.7 (2.1-6.9); NEUTROPHILS % 87.7 % (38.7-80.0); PLATELET COUNT 481 x10e3/uL (140-360); RED BLOOD COUNT 3.35 x10e6/uL (3.6-5.1); RED CELL DISTRIBUTION WIDTH 14.1 % (11.7-14.4)
[2018-06-11 05:24] LABS: ALANINE AMINOTRANSFERASE 7 IU/L (0-55); ALBUMIN 3.3 g/dL (3.5-5.0); ALKALINE PHOSPHATASE 50 IU/L (40-150); ANION GAP 11.8 mmol/L (8-16); BLOOD UREA NITROGEN 30 mg/dL (7-26); BUN/CREATININE RATIO 37 (6-25); CALCIUM 9.7 mg/dL (8.4-10.2); CARBON DIOXIDE 26 mmol/L (22-29); CHLORIDE 101 mmol/L (98-107); CREATININE, SERUM 0.82 mg/dL (0.57-1.11); EST GLOMERULAR FILTRATION RATE > 60 ML/MIN (60-); GLUCOSE 183 mg/dL (74-118); POTASSIUM 3.8 mmol/L (3.5-5.1); SODIUM 135 mmol/L (136-145)
[2018-06-11] MEDS: METHYLPREDNISOLONE SOD SUCC 125 MG/2ML VIAL IV SCH ×2 (08:51→20:59)
[2018-06-11] MEDS: OMEGA 3 POLYUNSAT FATTY ACIDS 1000 MG SOFTGEL PO SCH (08:51)
[2018-06-11] MEDS: APIXABAN 5 MG TABLET PO SCH (08:51)
[2018-06-11] MEDS: FAMOTIDINE 20 MG/2 ML VIAL IV SCH ×2 (08:51→17:41)
[2018-06-11] MEDS: SPIRONOLACTONE 25 MG TAB PO SCH (08:51)
[2018-06-11] MEDS: AMIODARONE HCL 200 MG TAB PO SCH (08:51)
[2018-06-11] MEDS: IBUPROFEN 200 MG TAB PO PRN (08:56)
[2018-06-11] MEDS: HYDROCODONE/APAP 7.5MG-325MG 1 EA TAB PO PRN (08:57)
[2018-06-11] MEDS ORDERED: METOPROLOL SUCCINATE 25 MG TAB XL PO SCH (09:00)
[2018-06-11] MEDS: MIRABEGRON 50 MG PO SCH (09:00)
[2018-06-11] MEDS ORDERED: LISINOPRIL 10 MG TAB PO SCH (09:00)
--- NOTE | 2018-06-11 12:30 | Progress Note ---
DATE: June 11, 2018 CARDIOLOGY PROGRESS NOTE SUBJECTIVE: With no complaints. OBJECTIVE VITAL SIGNS: Temperature 98 degrees, heart rate 69, blood pressure 127/77, respiratory rate 21, O2 sat 99%. BMI of 35.5. GENERAL: No acute distress. Alert. NECK: No JVD. CHEST: Clear to auscultation. CARDIOVASCULAR: Regular rate and rhythm. Normal S1 and S2. No S3, no S4. ABDOMEN: Soft, nontender. EXTREMITIES: No edema. Warm distal extremities. TELEMETRY: In normal sinus rhythm. CARDIOVASCULAR MEDICATIONS: Reviewed. 1. Amiodarone 200 mg daily. 2. Spironolactone 25 mg daily. 3. Lisinopril 5 mg daily. 4. Metoprolol succinate extended-release 25 mg daily. 5. Fenofibrate 145 mg daily. 6. Eliquis 5 mg every 12 hours. 7. [place]-3 fatty acids 1000 mg daily. STUDIES: Reviewed. Sodium 135, potassium 3.8, chloride 101, bicarbonate 26, BUN 30, creatinine 0.82, glucose 183. White blood cells 12.1, hemoglobin 9.9, platelets 481. AST 11, ALT 7, alk phos 50. ASSESSMENT 1. Paroxysmal atrial fibrillation. 2. Encephalopathy versus transient ischemic attack/cerebrovascular accident. 3. Pneumonia. 4. Tkcjv-gr-alqyfid diastolic heart failure. 5. Chronic venous insufficiency. 6. Hypertension. 7. Dyslipidemia. 8. Chronic obstructive pulmonary disease. RECOMMENDATIONS 1. Continue current cardiovascular medications. 2. Overall some improvement noted today. Blood pressure remains labile from 120s to 170s. If remains elevated predominantly throughout the rest of the day, may uptitrate metoprolol to 25 mg every 12 hours later this afternoon. Continue rest of cardiovascular medications. Job#: [id number] EV
[2018-06-11] MEDS: CEFTRIAXONE SOD 1 GM VIAL IV SCH (17:41)
[2018-06-11] MEDS: AZITHROMYCIN 500MG/SOD CHL 0.9% 250ML BAG IV SCH (17:41)
[2018-06-11] MEDS: DOCUSATE SODIUM 100 MG CAP PO SCH (17:41)
--- NOTE | 2018-06-11 18:07 | Progress Note ---
DATE: INTERNAL MEDICINE PROGRESS NOTE SUBJECTIVE: Patient is doing better. PHYSICAL EXAM: VITAL SIGNS: Blood pressure 100/93. Temperature 98.2. Heart rate 66 per minute. Respiratory rate is 34 per minute. Oxygen saturation is 100%. HEART: Shows regular irregular heart rate. Normal S1 and S2 sounds. LUNGS: Lungs are clear bilaterally; however, significantly decreased. EXTREMITIES: Show no evidence of cyanosis, edema or trauma. On the BMP: Sodium 135, potassium 3.8, chloride 101, CO2 26, BUN 30, creatinine 0.82, glucose 183. On the CBC: White blood count 12.1, hemoglobin 9.9, hematocrit 31.4, platelet count 481,000. FINAL IMPRESSION: 1. Acute respiratory failure. 1. Chronic obstructive pulmonary disease exacerbation. 2. Metabolic encephalopathy. 3. Chronic atrial fibrillation. 4. Right cerebrovascular accident. 5. Acute renal insufficiency. 6. Uncontrolled diabetes mellitus type 2 with diabetic nephropathy. PLAN OF TREATMENT: Continue oxygen. Continue Albuterol and Atrovent q.6 hours. Continue Zithromax 500 mg IV q.24 hours. Ceftriaxone 1 gram IV once a day. Pepcid 20 mg twice a day. Clonazepam 0.5 mg twice a day. Cymbalta 60 mg daily. Seroquel 12.5 mg q.6 hours as needed. Metoprolol 25 mg twice a day. Tylenol 650 mg q.6 hours. [place] 1 tablet q.6 hours as needed for severe pain. Gabapentin 300 mg 3 times a day. Fenofibrate 145 mg daily. Simvastatin 20 mg daily. Methylprednisolone 30 mg IV twice a day. Ibuprofen 400 mg q.6 hours. Zofran 4 mg IV q.4 hours as needed for vomiting. [place] 3 fatty acid 1000 mg twice a day. Requip 0.5 mg at bedtime. Eliquis 5 mg twice a day. Ambien 5 mg at bedtime. Amiodarone 200 mg daily. Aldactone 25 mg daily. Lisinopril 5 mg daily. The patient is going to be transferred to the medical telemetry unit. She is going to be referred to [facility] for continuation of the current IV antibiotic therapy for possible pneumonia and optimization of the cardiopulmonary status. Job#: [id number] EV
[2018-06-11] MEDS: FENOFIBRATE 145 MG TAB PO SCH (20:59)
[2018-06-11] MEDS: SIMVASTATIN 20 MG TAB PO SCH (20:59)
[2018-06-11] MEDS: DULOXETINE HCL 30 MG DELAYED RELEASE PO SCH (20:59)
[2018-06-11] MEDS: ROPINIROLE HCL 0.25 MG TAB PO SCH (20:59)
[2018-06-11] MEDS ORDERED: INSULIN LISPRO 100 UNIT/1 ML 3ML VIAL SQ SCH (21:00)
[2018-06-11] MEDS: METOPROLOL SUCCINATE 25 MG TAB XL PO SCH (21:00)
[2018-06-11] MEDS ORDERED: METHYLPREDNISOLONE SOD SUCC 40 MG/ML VIAL IV SCH (21:00)
[2018-06-11] MEDS ORDERED: DEXTROSE 50% SYRINGE 50 ML IV PRN (21:30)
[2018-06-12] VITALS (11 sets, daily range): BP systolic 125–172; BP diastolic 69–109
[2018-06-12 04:41] LABS: BASOPHILS % 0.1 % (0.0-1.0); HEMATOCRIT 31.5 % (34.2-44.1); HEMOGLOBIN 10.2 g/dL (12.0-16.0); LYMPHOCYTES # (AUTO) 0.8 (1.0-3.2); LYMPHOCYTES % 7.7 % (18.0-39.1); MEAN CORPUSCULAR HEMOGLOBIN 29.8 pg (28-32); MEAN CORPUSCULAR HGB CONC 32.4 g/dL (31-35); MEAN CORPUSCULAR VOLUME 92.1 fL (81-99); MONOCYTES # (AUTO) 0.3 (0.2-0.8); MONOCYTES % 2.5 % (4.4-11.3); NEUTROPHILS # (AUTO) 9.7 (2.1-6.9); NEUTROPHILS % 88.9 % (38.7-80.0); PLATELET COUNT 448 x10e3/uL (140-360); RED BLOOD COUNT 3.42 x10e6/uL (3.6-5.1); RED CELL DISTRIBUTION WIDTH 13.9 % (11.7-14.4)
[2018-06-12 05:09] LABS: ALANINE AMINOTRANSFERASE 7 IU/L (0-55); ALBUMIN 3.1 g/dL (3.5-5.0); ALKALINE PHOSPHATASE 44 IU/L (40-150); ANION GAP 11.2 mmol/L (8-16); BLOOD UREA NITROGEN 29 mg/dL (7-26); BUN/CREATININE RATIO 36 (6-25); CALCIUM 9.4 mg/dL (8.4-10.2); CARBON DIOXIDE 29 mmol/L (22-29); CHLORIDE 103 mmol/L (98-107); EST GLOMERULAR FILTRATION RATE > 60 ML/MIN (60-); GLUCOSE 166 mg/dL (74-118); POTASSIUM 4.2 mmol/L (3.5-5.1); SODIUM 139 mmol/L (136-145)
[2018-06-12] MEDS ORDERED: DILTIAZEM HCL ER 120 MG CAPCR PO SCH (09:00)
[2018-06-12] MEDS ORDERED: LISINOPRIL 20 MG TAB PO SCH (09:00)
[2018-06-12] MEDS ORDERED: LUBIPROSTONE 24 MCG CAP PO SCH (09:00)
[2018-06-12] MEDS: DOCUSATE SODIUM 100 MG CAP PO SCH (09:00)
[2018-06-12] MEDS: MIRABEGRON 50 MG PO SCH (09:00)
[2018-06-12] MEDS ORDERED: LISINOPRIL 10 MG TAB PO SCH (09:00)
[2018-06-12] MEDS: INSULIN LISPRO 100 UNIT/1 ML 3ML VIAL SQ SCH ×2 (09:18→11:30)
[2018-06-12] MEDS: FAMOTIDINE 20 MG/2 ML VIAL IV SCH (09:19)
[2018-06-12] MEDS: SPIRONOLACTONE 25 MG TAB PO SCH (09:19)
[2018-06-12] MEDS: METHYLPREDNISOLONE SOD SUCC 125 MG/2ML VIAL IV SCH (09:19)
[2018-06-12] MEDS: METOPROLOL SUCCINATE 25 MG TAB XL PO SCH (09:20)
[2018-06-12] MEDS: AMIODARONE HCL 200 MG TAB PO SCH (09:20)
[2018-06-12] MEDS: APIXABAN 5 MG TABLET PO SCH (09:20)
[2018-06-12] MEDS: IBUPROFEN 200 MG TAB PO PRN (09:21)
[2018-06-12] MEDS: HYDROCODONE/APAP 7.5MG-325MG 1 EA TAB PO PRN (09:21)
[2018-06-12] MEDS: OMEGA 3 POLYUNSAT FATTY ACIDS 1000 MG SOFTGEL PO SCH (09:28)
[2018-06-12] MEDS ORDERED: LEVOFLOXACIN 500MG/D5W 100ML 100 ML IV SCH (12:15)
[2018-06-12] MEDS ORDERED: ARTIFICIAL TEARS (OPTH) 15 ML BTL OP SCH (13:00)
--- NOTE | 2018-06-12 15:49 | Discharge Summary ---
HISTORY OF PRESENT ILLNESS: The patient is a 62-year-old female with past medical history positive for COPD, chronic atrial fibrillation, hypertension, chronic pain syndrome, who came here with COPD exacerbation and toxic metabolic encephalopathy. She was started on a BiPAP. She was weaned off the BiPAP. She was started on IV antibiotic because of pneumonia. She is doing a lot better right now. PHYSICAL EXAM: VITAL SIGNS: Blood pressure 147/83, temperature 98.2, heart rate 60 per minute, respiratory rate is 15 per minute. Oxygen saturation 92%. HEART: Irregularly irregular heart rate. No murmur. No extra sounds. LUNGS: Decreased breath sounds bilaterally. ABDOMEN: Soft. EXTREMITIES: Show no evidence of cyanosis, edema or trauma. On the BMP sodium 139, potassium 4.2, chloride 103, CO2 29, BUN 29, creatinine 0.80, glucose 166. On the CBC white blood count 10.8, hemoglobin 10.2, hematocrit 31.5, platelet count 448,000. AST 10, ALT 7, total bilirubin 0.2, alkaline phos 44. FINAL IMPRESSION: 1. Chronic obstructive pulmonary disease exacerbation with acute hypoxic respiratory failure. 2. Chronic atrial fibrillation. 3. Chronic pain syndrome. 4. Narcotic-induced constipation. 5. Left parietal cerebrovascular accident with cranial nerve palsy. PLAN OF TREATMENT: Continue albuterol and Atrovent q.6 hours. Continue Zithromax 500 mg IV q.24 hours. Ceftriaxone 1 gram IV once a once a day. Pepcid 20 mg twice a day. Clonazepam 0.2 mg twice a day. Cymbalta 60 mg daily. Seroquel ____ q.6 hours as needed. Solu-Medrol 30 mg IV twice a day. Amitiza 24 mcg p.o. twice a day for narcotic-induced constipation. Continue Tylenol 350 mg p.o. q.6 hours as needed. [place] 1 tablet q.6 hours as needed. Gabapentin 300 mg 3 times a day. Fenofibrate 145 mg daily. Simvastatin 20 mg daily. Cardizem 120 mg daily. Continue monitoring blood sugar a.c. and nightly. Ibuprofen 400 mg q.6 hours. Zofran 4 mg q.4 hours as needed. [place] 3 fatty acid 1000 mg twice a day. Requip 0.5 mg at bedtime. Eliquis 5 mg twice a day. Lisinopril 20 mg daily. Ambien 5 mg at night p.r.n. for sleep. Amiodarone 200 mg daily. Aldactone 25 mg daily. Metoprolol 25 mg twice a day. Colace 100 mg twice a day. Artificial tears 1 drop to each eye q.4 hours as needed and Artificial Tears 1 drop to each eye q.4 h. as needed for dry eyes. The patient is going to be transferred to [facility]. ESA REDDY MD Job#: [id number] GH
== END 2018-06-12 15:33 | DRG 291 ==
LOC: ER 15:44 → ERHOLD 17:59 → MED/SURG 20:35 → ICU 06-08 05:42
PROVIDERS: ADMIT Internal Medicine; ATTEND Internal Medicine
PROC: 02HV33Z Insertion of Infusion Device into Superior Vena Cava, Percutaneous Approach (ICD-10-PCS; principal; 2018-06-08)
DX: I11.0 Hypertensive heart disease with heart failure (principal); J96.21 Acute and chronic respiratory failure with hypoxia; G93.41 Metabolic encephalopathy; J18.9 Pneumonia, unspecified organism; I63.9 Cerebral infarction, unspecified; J44.0 Chronic obstructive pulmonary disease with (acute) lower respiratory infection; J44.1 Chronic obstructive pulmonary disease with (acute) exacerbation; I50.33 Acute on chronic diastolic (congestive) heart failure; G89.4 Chronic pain syndrome; K59.03 Drug induced constipation; T40.605A Adverse effect of unspecified narcotics, initial encounter; H49.22 Sixth [abducent] nerve palsy, left eye; E66.01 Morbid (severe) obesity due to excess calories; Z68.32 Body mass index [BMI] 32.0-32.9, adult; F17.210 Nicotine dependence, cigarettes, uncomplicated; I48.0 Paroxysmal atrial fibrillation; Z79.01 Long term (current) use of anticoagulants; E11.51 Type 2 diabetes mellitus with diabetic peripheral angiopathy without gangrene; Z79.4 Long term (current) use of insulin; G47.33 Obstructive sleep apnea (adult) (pediatric); I27.81 Cor pulmonale (chronic); R60.0 Localized edema; I87.2 Venous insufficiency (chronic) (peripheral); E11.21 Type 2 diabetes mellitus with diabetic nephropathy
CPT/HCPCS: 36415; 36569; 36600; 51700; 70450; 71045; 74470; 80053; 80061; 80307; 81001; 82140; 82550; 82553; 82607; 82805; 82948; 83036; 83605; 83735; 83880; 84100; 84425; 84436; 84443; 84479; 84484; 85025; 86592; 87040; 87086; 93005; 93306; 93880; 94640; 94660; 97139; 99284; J0456; J0696; J2930; J7040; J7050

== ENCOUNTER → 2019-03-08 | Day surgery (SDC) | payer MEDICARE ==
[2019-03-06 11:57] LABS: BASOPHILS % 0.5 % (0.0-1.0); EOSINOPHILS # (AUTO) 0.1 (0.0-0.4); HEMATOCRIT 43.1 % (34.2-44.1); LYMPHOCYTES # (AUTO) 2.2 (1.0-3.2); LYMPHOCYTES % 25.1 % (18.0-39.1); MEAN CORPUSCULAR HEMOGLOBIN 27.7 pg (28-32); MEAN CORPUSCULAR HGB CONC 32.5 g/dL (31-35); MEAN CORPUSCULAR VOLUME 85.2 fL (81-99); MONOCYTES # (AUTO) 0.7 (0.2-0.8); MONOCYTES % 7.6 % (4.4-11.3); NEUTROPHILS # (AUTO) 5.8 (2.1-6.9); NEUTROPHILS % 65.5 % (38.7-80.0); PLATELET COUNT 312 x10e3/uL (140-360); RED BLOOD COUNT 5.06 x10e6/uL (3.6-5.1); RED CELL DISTRIBUTION WIDTH 17.1 % (11.7-14.4)
[2019-03-06 12:21] LABS: ALANINE AMINOTRANSFERASE 6 IU/L (0-55); ALBUMIN 3.8 g/dL (3.5-5.0); ALBUMIN/GLOBULIN RATIO 1.2 (0.8-2.0); ALKALINE PHOSPHATASE 74 IU/L (40-150); BLOOD UREA NITROGEN 5 mg/dL (7-26); BUN/CREATININE RATIO 7 (6-25); CALCIUM 9.9 mg/dL (8.4-10.2); CARBON DIOXIDE 23 mmol/L (22-29); CHLORIDE 103 mmol/L (98-107); CREATININE, SERUM 0.71 mg/dL (0.57-1.11); EST GLOMERULAR FILTRATION RATE > 60 ML/MIN (60-); GLUCOSE 85 mg/dL (74-118); SODIUM 136 mmol/L (136-145)
[2019-03-06 12:36] LABS: CHOL/HDL RATIO 3.1 (3.0-3.6)
[2019-03-06 12:43] LABS: INR 1.44; PROTHROMBIN TIME 18.1 seconds (11.9-14.5)
[2019-03-06 13:20] LABS: PARTIAL THROMBOPLASTIN TIME 35.4 seconds (23.8-35.5)
[~2019-03-08] VITALS: Ht 167.6 cm; Wt 106.1 kg
[2019-03-08] VITALS (24 sets, daily range): BP systolic 129–177; BP diastolic 66–100
[~2019-03-08] MED LIST changes: +ALDACTONE25 MG PO; +AMIODARONE HCL200 MG PO; +ASPIRIN 325 MG TAB ONE; +ATROPINE SULFATE 0.1 MG/ML 10ML SYR ONE; +CLOPIDOGREL BISULFATE 75 MG TAB ONE; +DILTIAZEM HCL60 MG PO; +FENTANYL CITRATE/PF 100MCG/2 ML INJ ONE; +HEPARIN SOD/SOD CHLORIDE 2,000 ML ONE; +HYDRALAZINE HCL 20 MG/ML VIAL ONE; +HYDROCODONE/APAP 5MG-325MG TAB ONE; +IOPAMIDOL 300MG/ML 100 ML INFUS..BTL IV ONE; +LIDOCAINE HCL 2% LOCAL 20 ML VIAL ONE; +LISINOPRIL10 MG PO; +METHYLPREDNISOLONE SOD SUCC 125 MG/2ML VIAL ONE; +METOPROLOL SUCC25 MG PO; +MIDAZOLAM HCL 2 MG/2 ML VIAL ONE; +MORPHINE SULFATE INJ 4 MG/ML INJ 1ML ONE; +MYRBETRIQ50 MG PO; +SODIUM CHLORIDE 0.9% 1000ML 1,000 ML ONE; +SUBOXONE 8 MG-1 EAC2; +XARELTO20 MG PO
--- OUTSIDE RECORDS SUMMARY | 2019-03-08 08:36 | XMS REPORT | Continuity of Care Document ---
Author Author [employer] Information [employer] Address Unknown Phone Unavailable Care Team Providers Care Due Diligence Coordinator Name Role Phone [facility] [employer] Information Exchange Unavailable Unavailable Problems Problem Status Onset Date Classification Date Reported Comments Source Congestive heart failure Active Problem 06/12/2018 [facility] Acute bronchitis with chronic obstructive pulmonary disease (COPD) Active Problem 06/12/2018 [facility] Cellulitis of right foot Active Problem 06/12/2018 [facility] Diplopia Active Problem 06/12/2018 [facility] Respiratory failure with hypoxia Active Problem 06/12/2018 [facility] Weakness Active Problem 06/12/2018 [facility] Open wound of toe Active Problem 06/12/2018 [facility] Medications Medication Details Route Status Patient Instructions Ordering Provider Order Date Source Albuterol Sulfate (Proair Hfa Inhaler*) 8.5 Gm Inh, Inhalation As Needed Active 06/07/2018 [facility] Amlodipine Besylate 5 Mg Tablet, Unknown Dose Oral Daily Active 06/07/2018 [facility] Atenolol 50 Mg Tablet, 25 Mg Oral Daily Active 06/07/2018 [facility] Clobetasol Propionate 15 Gm Gel..gram., Active 06/07/2018 [facility] Enalapril Maleate (Vasotec) 10 Mg Tablet, 20 Mg Oral Twice A Day Active 06/07/2018 [facility] Lubiprostone (Amitiza) 24 Mcg Capsule, 24 Mcg Oral Twice A Day Active 06/07/2018 [facility] Oxycodone Hcl/Acetaminophen (Percocet 10-325 Mg Tablet) 1 Each Tablet, Active 06/07/2018 [facility] Potassium Chloride 20 Meq Tab.er.prt, 20 Meq Oral Daily Active 06/07/2018 [facility] Buspirone Hcl 10 Mg Tablet, 10 Mg Oral As Needed Active 12/09/2016 [facility] Enalapril , Oral Twice A Day Active 12/09/2016 [facility] Buprenorphine Hcl/Naloxone Hcl (Suboxone 8 Mg-2 Mg Sl Film) 1 Each Film, 0.5 Each Sublingual Twice A Day Active 04/23/2015 [facility] Duloxetine Hcl (Cymbalta) 60 Mg Capsule.dr, 60 Mg Oral Bedtime Active 02/07/2014 [facility] Meloxicam 15 Mg Tablet, 15 Mg Oral Daily Active 02/05/2014 [facility] Suboxone , 1-2 Times Daily Active 02/05/2014 [facility] Buspar , Active 12/03/2013 [facility] Enalapril 20 Mg Bid , Active 12/03/2013 [facility] Dicyclomine Hcl (Bentyl) 10 Mg Capsule, 10 Mg Oral Four Times Daily Active 03/19/2013 [facility] Enalapril Maleate 20 Mg Tablet, 20 Mg Oral Twice A Day Active 03/19/2013 [facility] Ondansetron Hcl (Zofran*) 4 Mg Tablet, 4 Mg Oral Twice A Day Active 03/19/2013 [facility] Oxycodone Hcl 30 Mg Tablet, 30 Mg Oral Four Times Daily Active 03/19/2013 [facility] Oxymorphone Hcl 10 Mg Tablet, 10 Mg Oral Twice A Day Active 03/19/2013 [facility] Amiodarone Hcl 200 Mg Tablet Every 12 Hours Active [facility] Aripiprazole (Abilify) 5 Mg Tablet Bedtime Active [facility] Buprenorphine Hcl/Naloxone Hcl (Suboxone 8 Mg-2 Mg Sl Film) 1 Each Film Three Times A Day Active [facility] Clonazepam 0.5 Mg Tablet As Needed as needed for Anxiety Active [facility] Diltiazem Hcl 60 Mg Tablet Daily Active [facility] Duloxetine Hcl (Cymbalta) 60 Mg Capsule.dr Bedtime Active [facility] Fenofibrate 200 Mg Cap Bedtime Active [facility] Furosemide 40 Mg Tablet Daily Active [facility] Gabapentin (Neurontin) 300 Mg Capsule Three Times A Day Active [facility] Lisinopril 10 Mg Tablet Every 12 Hours Active [facility] Metoprolol Succinate 25 Mg Tab.er.24h Daily Active [facility] Mirabegron (Myrbetriq) 50 Mg Tab.er.24h Daily Active [facility] [place]-3 Acid Ethyl Esters (Lovaza) 1 Gm Capsule 2BID Active [facility] Rivaroxaban (Xarelto) 20 Mg Tablet Daily Active [facility] Ropinirole Hcl 0.5 Mg Tablet Bedtime Active [facility] Spironolactone (Aldactone) 25 Mg Tablet Daily Active [facility] Allergies, Adverse Reactions, Alerts Substance Category Reaction Severity Reaction type Status Date Reported Comments Source Sulfa (Sulfonamide Antibiotics) Unknown Allergy to Substance Active 12/09/2016 [facility] Iodinated Contrast- Oral and IV Dye MILD Unknown Allergy to Substance Active 06/08/2018 [facility] Immunizations No Data Provided for This Section Results Order Name Results Value Reference Range Date Interpretation Comments Source Capillary blood glucose measurement by glucometer (mass/volume) 97 70 - 120 06/12/2018 [facility] Blood leukocytes automated count (number/volume) 10.88 4.8 - 10.8 06/12/2018 [facility] Blood erythrocytes automated count (number/volume) 3.42 3.6 - 5.1 06/12/2018 [facility] Blood hemoglobin measurement (moles/volume) 10.2 12.0 - 16.0 06/12/2018 [facility] Automated blood hematocrit (volume fraction) 31.5 34.2 - 44.1 06/12/2018 [facility] Automated erythrocyte mean corpuscular volume 92.1 81 - 99 06/12/2018 [facility] Automated erythrocyte mean corpuscular hemoglobin (mass per erythrocyte) 29.8 28 - 32 06/12/2018 [facility] Automated erythrocyte mean corpuscular hemoglobin concentration measurement (mass/volume) 32.4 31 - 35 06/12/2018 [facility] RDW BldCo-Rto 13.9 11.7 - 14.4 06/12/2018 [facility] Automated blood platelet count (count/volume) 448 140 - 360 06/12/2018 [facility] Automated blood segmented neutrophil count as percentage of total leukocytes 88.9 38.7 - 80.0 06/12/2018 [facility] Automated blood lymphocyte count as percentage ot total leukocytes 7.7 18.0 - 39.1 06/12/2018 [facility] Automated blood monocyte count as percentage of total leukocytes 2.5 4.4 - 11.3 06/12/2018 [facility] Automated blood eosinophil count as percentage of total leukocytes 0.0 0.0 - 6.0 06/12/2018 [facility] Automated blood basophil count as percentage of total leukocytes 0.1 0.0 - 1.0 06/12/2018 [facility] IM GRANULOCYTES % 0.8 0.0 - 1.0 06/12/2018 [facility] Automated blood neutrophil count 9.7 2.1 - 6.9 06/12/2018 [facility] Blood lymphocytes count (number/volume) 0.8 1.0 - 3.2 06/12/2018 [facility] Blood monocytes automated count (number/volume) 0.3 0.2 - 0.8 06/12/2018 [facility] Automated blood eosinophil count 0.0 0.0 - 0.4 06/12/2018 [facility] Automated blood basophil count (count/volume) 0.0 0.0 - 0.1 06/12/2018 [facility] Absolute Immature Granulocyte (auto 0.09 0 - 0.1 06/12/2018 [facility] Serum or plasma sodium measurement (moles/volume) 139 136 - 145 06/12/2018 [facility] Serum or plasma potassium measurement (moles/volume) 4.2 3.5 - 5.1 06/12/2018 [facility] Serum or plasma chloride measurement (moles/volume) 103 98 - 107 06/12/2018 [facility] Serum or plasma carbon dioxide, total measurement (moles/volume) 29 22 - 29 06/12/2018 [facility] Serum or plasma anion gap 11.2 8 - 16 06/12/2018 [facility] Serum or plasma urea nitrogen measurement (mass/volume) 29 7 - 26 06/12/2018 [facility] Serum or plasma creatinine measurement (mass/volume) 0.80 0.57 - 1.11 06/12/2018 [facility] Serum or plasma urea nitrogen/creatinine mass ratio 36 6 - 25 06/12/2018 [facility] Estimated glomerular filtration rate (GFR) determination > 60 60 06/12/2018 [facility] Glucose measurement 166 74 - 118 06/12/2018 [facility] Serum or plasma calcium measurement (mass/volume) 9.4 8.4 - 10.2 06/12/2018 [facility] Serum or plasma total bilirubin measurement (mass/volume) 0.2 0.2 - 1.2 06/12/2018 [facility] Aspartate Amino Transf (AST/SGOT) 10 5 - 34 06/12/2018 [facility] Serum or plasma alanine aminotransferase measurement (enzymatic activity/volume) 7 0 - 55 06/12/2018 [facility] Serum or plasma protein measurement (mass/volume) 6.3 6.5 - 8.1 06/12/2018 [facility] Serum or plasma albumin measurement (mass/volume) 3.1 3.5 - 5.0 06/12/2018 [facility] Plasma globulin measurement (mass/volume) 3.2 2.3 - 3.5 06/12/2018 [facility] Serum or plasma albumin/globulin mass ratio 1.0 0.8 - 2.0 06/12/2018 [facility] Serum or plasma alkaline phosphatase measurement (enzymatic activity/volume) 44 40 - 150 06/12/2018 [facility] Hemoglobin A1c Percent 5.4 4.0 - 7.0 06/11/2018 [facility] Arterial blood pH measurement 7.37 7.31 - 7.41 06/10/2018 [facility] pCO2 BldA 48 41 - 51 06/10/2018 [facility] pCO2 BldA 77 80 - 105 06/10/2018 [facility] Arterial blood bicarbonate measurement (moles/volume) 28 23 - 28 06/10/2018 [facility] Arterial blood base excess by calculation 2.0 -2 - 3 - 2 06/10/2018 [facility] Arterial blood oxygen saturation measurement 95.0 95 - 98 06/10/2018 [facility] FiO2 28 06/10/2018 [facility] Ammonia Ser-mCnc 89 31 - 123 06/08/2018 [facility] Serum or plasma triglyceride measurement (mass/volume) 92 0 - 149 06/08/2018 [facility] Serum or plasma cholesterol measurement (mass/volume) 162 0 - 199 06/08/2018 [facility] Serum or plasma cholesterol in LDL measurement (mass/volume) 92 60 - 130 06/08/2018 [facility] Serum or plasma cholesterol in HDL measurement (mass/volume) 52 40 - 60 06/08/2018 [facility] Serum or plasma total cholesterol/cholesterol in HDL mass ratio 3.1 3.0 - 3.6 06/08/2018 [facility] Blood cobalamin (vitamin B12) measurement (mass/volume) 350 213 - 816 06/08/2018 [facility] Free thyroxine index 1.9973 1.4 - 3.8 06/08/2018 [facility] Serum or plasma thyroxine (T4) measurement (mass/volume) 7.19 4.5 - 10.9 06/08/2018 [facility] Serum or plasma triiodothyronine resin uptake (T3RU) 27.78 22.5 - 37.0 06/08/2018 [facility] Serum or plasma thyrotropin measurement by detection limit <=0.005 miu/l (units/volume) 0.717 0.350 - 4.940 06/08/2018 [facility] Qualitative serum rapid plasma reagin (RPR) test Non Reactive Non Reactive 06/08/2018 [facility] Blood culture NO GROWTH AFTER 72 HOURS 06/08/2018 [facility] Urine color determination YELLOW YELLOW 06/08/2018 [facility] Urine clarity HAZY CLEAR 06/08/2018 [facility] Specific gravity of Urine by Test strip 1.025 1.010 - 1.025 06/08/2018 [facility] Urine pH measurement by automated test strip 6.5 5 - 7 06/08/2018 [facility] Urine leukocyte esterase detection by dipstick NEGATIVE NEGATIVE 06/08/2018 [facility] Urine nitrite detection NEGATIVE NEGATIVE 06/08/2018 [facility] Urine protein measurement by test strip (mass/volume) TRACE NEGATIVE 06/08/2018 [facility] Urine glucose detection NEGATIVE NEGATIVE 06/08/2018 [facility] Urine ketones detection by automated test strip NEGATIVE NEGATIVE 06/08/2018 [facility] Urine opiates screening test NEGATIVE NEGATIVE 06/08/2018 [facility] Barbiturates screen, urine NEGATIVE NEGATIVE 06/08/2018 [facility] Urine phencyclidine detection by screening method NEGATIVE NEGATIVE 06/08/2018 [facility] Urine amphetamines detection by screen method > 1000 ng/mL NEGATIVE NEGATIVE 06/08/2018 [facility] Urine Methamphetamines Screen NEGATIVE NEGATIVE 06/08/2018 [facility] Urine benzodiazepines detection by screening method NEGATIVE NEGATIVE 06/08/2018 [facility] Urine cocaine measurement (mass/volume) NEGATIVE NEGATIVE 06/08/2018 [facility] Urine cannabinoids detection by screening method NEGATIVE NEGATIVE 06/08/2018 [facility] Urine methadone screen NEGATIVE NEGATIVE 06/08/2018 [facility] Urine urobilinogen measurement by test strip (mass/volume) 0.2 0.2 - 1 06/08/2018 [facility] Urine total bilirubin measurement (mass/volume) NEGATIVE NEGATIVE 06/08/2018 [facility] Urine erythrocytes detection 1+ NEGATIVE 06/08/2018 [facility] Automated urine sediment leukocyte count by microscopy (number/high power field) 0-5 0 - 5 06/08/2018 [facility] Erythrocytes detection in urine sediment by light microscopy 11-20 0 - 5 06/08/2018 [facility] Bacteria detection in urine sediment by light microscopy FEW NONE 06/08/2018 [facility] Epithelial cells detection in urine sediment by light microscopy FEW NONE 06/08/2018 [facility] Lactic Acid Level 6.0 4.5 - 19.8 06/08/2018 [facility] Phosphorus measurement 3.7 2.3 - 4.7 06/08/2018 [facility] Serum or plasma magnesium measurement (mass/volume) 2.2 1.3 - 2.1 06/08/2018 [facility] Serum or plasma creatine kinase measurement (enzymatic activity/volume) 48 29 - 168 06/08/2018 [facility] Serum or plasma creatine kinase MB measurement (mass/volume) 1.20 0 - 5.0 06/08/2018 [facility] Troponin I measurement by highly sensitive enzyme immunoassay 0.010 0 - 0.300 06/08/2018 [facility] BNP Bld-mCnc 119.0 0 - 100 06/07/2018 [facility] Differential Total Cells Counted 100 03/25/2018 [facility] Manual blood neutrophils/100 leukocytes 77 40 - 74 03/25/2018 [facility] Manual blood band neutrophils form/100 leukocytes 1 03/25/2018 [facility] Manual blood lymphocytes/100 leukocytes 8 19 - 48 03/25/2018 [facility] Manual blood monocytes/100 leukocytes 14 3.4 - 9.0 03/25/2018 [facility] Blood platelets count by estimate (number/volume) ADEQUATE 03/25/2018 [facility] Platelet morphology NORMAL 03/25/2018 [facility] RBC morphology NORMAL 03/25/2018 [facility] Pathology Reports No Data Provided for This Section Diagnostic Reports No Data Provided for This Section Consultation Notes No Data Provided for This Section Discharge Summaries No Data Provided for This Section History and Physicals No Data Provided for This Section Vital Signs No Data Provided for This Section Encounters Location Location Details Encounter Type Encounter Number Reason For Visit Attending Provider ADM Date DC Date Status Source Registered Clinic [id number] LAENNE MADDOX MD 01/08/2018 [facility] Discharged Inpatient [id number] ESA REDDY MD 03/20/2018 03/26/2018 [facility] Discharged Inpatient [id number] ESA REDDY MD 06/07/2018 06/12/2018 [facility] Procedures Procedure Code Date Perfomer Comments Source Computed tomography of brain without radiopaque contrast [id number] 06/07/2018 [facility] X-ray of chest, two views [id number] 03/23/2018 ZACARIAS [facility] MRI jnt of r extre w/o dye [id number] 01/08/2018 TAN [facility] Assessment and Plan No Data Provided for This Section Plan of Care Plan of Care Date Source Discharge Date 06/12/18 3:33pm Disposition [facility] ([facility]) Prescriptions See Medication Section 06/12/2018 [facility] Social History Social History Date Source Social History Problem Response Recorded Date/Time Onset Date Status Hx Psychiatric Problems No 12/10/2016 1:06am Not Applicable Not Applicable Hx Eating Disorder No 12/10/2016 1:06am Not Applicable Not Applicable Hx Substance Use Disorder No 12/10/2016 1:06am Not Applicable Not Applicable Hx Depression No 12/10/2016 1:06am Not Applicable Not Applicable Hx Alcohol Use No 12/10/2016 1:06am Not Applicable Not Applicable Hx Substance Use Treatment No 12/10/2016 1:06am Not Applicable Not Applicable Hx Physical Abuse No 12/10/2016 1:06am Not Applicable Not Applicable Smoking Status Start Date Stop Date Former smoker 06/12/2018 [facility] Family History No Data Provided for This Section Advance Directives Order Name Results Value Date Source Advance Directives Advance Directives Directive Response Recorded Date/Time Does the patient have an advance directive? No 06/07/18 7:45pm If yes, is advance directive on file with [facility]? No 06/07/18 7:45pm If not on file with [facility] will patient provide a copy? Yes 06/07/18 7:45pm Do you have a Directive to Physician? No 06/07/18 5:56pm Do you have a Medical Power of Shirt Presser? No 06/07/18 5:56pm Do you have an out of hospital Do Not Resuscitate Order? No 06/07/18 5:56pm Do you have any special needs we should be aware of? No 06/07/18 5:56pm Do you have a support person here with you today? Yes 06/07/18 5:56pm Did patient receive Notice of Privacy Practices? Yes 06/07/18 5:56pm Did patient receive patient rights and responsibilities? Yes 06/07/18 5:56pm 06/12/2018 [facility] Functional Status No Data Provided for This Section
--- NOTE | 2019-03-08 19:47 | Operative Report ---
DATE OF PROCEDURE: 03/08/2019 SURGEON: Bony Christian MD PROCEDURE INDICATION: Foot wounds to both 1st right and 1st left toe, which are poorly healing with outpatient therapy and abnormal Doppler ultrasound concerning for [id number] outflow disease/PAD (critical limb ischemia, limb salvage). PROCEDURES PERFORMED: 1. Abdominal aortogram. 2. Selective lower extremity angiography, bilateral. 3. Third-order catheter placement for right common femoral artery to left femoral artery. 4. Additional third-order catheter placement from right common femoral artery to left popliteal artery to better visualize with digital subtraction angiography and more proximal catheter placement, initially poorly visualized left [id number] vessels. 5. Manual pressure hemostasis. PROCEDURE COMPLICATIONS: None. ESTIMATED BLOOD LOSS: Less than 15 mL. PROCEDURE SUMMARY: After consent was obtained, the patient was prepped and draped in a sterile fashion. The right femoral site was locally infiltrated with 2% lidocaine and access was obtained with 6-Mauritanian sheath. Additional access to the right common femoral vein was obtained with an additional 6-Mauritanian sheath. The Omni Flush catheter was advanced over a leading wire into the distal descending abdominal aorta and angiography was performed revealing patent renal arteries and luminal irregularities throughout the infrarenal abdominal aorta and iliac vessels. Additional selective angiography was performed to each of both lower extremities with catheter positioned in the femoral artery on the left, the left popliteal artery and then the right external iliac artery, up-and-over 45 cm 6-Mauritanian sheath was advanced and additional Quick-Cross 0.035, 135 length catheter was advanced to the left popliteal artery position. Heparin was used to maintain an ACT over 250 during this procedure. The following findings were noted; luminal irregularities were noted in the infrarenal abdominal aorta and iliac vessels, patent renal arteries, common femoral arteries, profunda femoris and SFA, and popliteal arteries have luminal irregularities bilaterally. There is 3-vessel runoff with luminal irregularities throughout both lower extremities [id number] via an anterior tibial, TP trunk and peroneal and posterior tibial. At the foot level, however, there is severe small vessel disease with limited blushing and faint small caliber digital plantar arteries and branches. CONCLUSION: Outflow disease related to small vessel disease. RECOMMENDATIONS: Overall, the patient has guarded prognosis. She does have vascular disease, however, a small caliber artery level possibly related to history of smoking and history of impaired glucose tolerance with issues of hyperglycemia when receiving certain medications in the past associated to other comorbidities. Recommend aggressive medical therapy, wound care and consideration of hyperbarics. Further outpatient evaluation advised. MD SOPHIA Maher/MODL /[id number]
--- NOTE | 2019-03-13 07:18 | Operative Report ---
DATE OF PROCEDURE: 03/08/2019 SURGEON: Bony Christian MD PROCEDURE INDICATION: Claudication, pericardial arterial disease, and abnormal arterial Doppler ultrasound. PROCEDURES PERFORMED: 1. Access to right common femoral artery. 2. Catheter placement in the aorta. 3. Selective catheter placement from right femoral artery to left femoral artery for selective angiography to each of bilateral lower extremities, which was performed. 4. Third-order catheter placement from right femoral artery to left femoral artery. 5. Additional third-order catheter placement from right femoral artery to left popliteal artery. FINDINGS: 1. Renal arteries are patent. Infrarenal aorta and iliac vessels have luminal irregularities. Common femoral artery, profunda femoral artery and SFA and popliteal arteries bilaterally have luminal irregularities. There is 3-vessel runoff to each of both lower extremities via anterior tibial, peroneal and posterior tibial arteries. 2. There is diminished capillary blushing and decreased density of digital and plantar ranges bilaterally consistent with small vessel outflow disease. Conclusion: Small vessel / outflow PAD. Given the patient's history of smoking and impaired fasting glucose, also this patient has issues with diabetes/hyperglycemia when taking steroids (otherwise not controlled). Recommend medical aggressive therapy. Smoking cessation achieved. The patient encouraged to continue tobacco free. Bony Christian MD AFV/MODL /[id number]
== END | disposition home or self-care (01) ==
LOC: CATH LAB 08:30
PROVIDERS: ATTEND Internal Medicine Cardiovascular Disease
DX: I73.9 Peripheral vascular disease, unspecified (principal); Z88.2 Allergy status to sulfonamides; Z91.041 Radiographic dye allergy status; Z01.812 Encounter for preprocedural laboratory examination
CPT/HCPCS: 36247; 36415; 75625; 75716; 80053; 80061; 85025; 85610; 85730; C1769 ×2; C1887; J0360; J2001; J2250; J2270; J2930; J3010; J7030; Q9967

== ENCOUNTER 2019-04-12 14:00 | Outpatient (RCR) | payer MEDICARE ==
[~2019-04-12 14:00] MED LIST changes: -ASPIRIN 325 MG TAB ONE; -ATROPINE SULFATE 0.1 MG/ML 10ML SYR ONE; -CLOPIDOGREL BISULFATE 75 MG TAB ONE; -FENTANYL CITRATE/PF 100MCG/2 ML INJ ONE; -HEPARIN SOD/SOD CHLORIDE 2,000 ML ONE; -HYDRALAZINE HCL 20 MG/ML VIAL ONE; -HYDROCODONE/APAP 5MG-325MG TAB ONE; -IOPAMIDOL 300MG/ML 100 ML INFUS..BTL IV ONE; -LIDOCAINE HCL 2% LOCAL 20 ML VIAL ONE; -METHYLPREDNISOLONE SOD SUCC 125 MG/2ML VIAL ONE; -MIDAZOLAM HCL 2 MG/2 ML VIAL ONE; -MORPHINE SULFATE INJ 4 MG/ML INJ 1ML ONE; -SODIUM CHLORIDE 0.9% 1000ML 1,000 ML ONE
== END 2019-04-15 ==
LOC: RESP 14:00
PROVIDERS: ATTEND Internal Medicine
DX: J44.9 Chronic obstructive pulmonary disease, unspecified (principal)
CPT/HCPCS: G0238 ×3; G0424 ×3

== ENCOUNTER 2019-04-26 14:53 | Outpatient (RCR) | payer MEDICARE | END 2019-05-16 | LOC: RESP 14:53 | PROVIDERS: ATTEND Internal Medicine | DX: J44.9 Chronic obstructive pulmonary disease, unspecified (principal) | CPT/HCPCS: G0238 ×6; G0424 ×6 ==

== ENCOUNTER 2019-11-04 18:47 | Inpatient (IN) | payer MEDICARE ==
[~2019-11-04] VITALS: Ht 167.6 cm; Wt 102.1 kg
[~2019-11-04 18:47] MED LIST changes: +CYMBALTA30 MG PO; +FENOFIBRATE145 MG PO; +NORCO 7.5-3251 EACH PO
[2019-11-04] MEDS ORDERED: MORPHINE SULFATE INJ 4 MG/ML INJ 1ML IV PRN (18:58)
[2019-11-04] MEDS ORDERED: SODIUM CHLORIDE 0.9% 1000ML 1,000 ML IV STA (18:58)
[2019-11-04] MEDS ORDERED: ONDANSETRON HCL INJ 2MG/ML 2ML 2 MG/ML VIAL IV STA (18:58)
[2019-11-04 19:17] LABS: BASOPHILS % 0.5 % (0.0-1.0); EOSINOPHILS % 0.5 % (0.0-6.0); HEMATOCRIT 34.7 % (34.2-44.1); HEMOGLOBIN 11.4 g/dL (12.0-16.0); LYMPHOCYTES # (AUTO) 2.9 (1.0-3.2); LYMPHOCYTES % 35.4 % (18.0-39.1); MEAN CORPUSCULAR HEMOGLOBIN 29.5 pg (28-32); MEAN CORPUSCULAR HGB CONC 32.9 g/dL (31-35); MEAN CORPUSCULAR VOLUME 89.7 fL (81-99); MONOCYTES # (AUTO) 0.8 (0.2-0.8); MONOCYTES % 10.1 % (4.4-11.3); NEUTROPHILS # (AUTO) 4.3 (2.1-6.9); PLATELET COUNT 439 x10e3/uL (140-360); RED BLOOD COUNT 3.87 x10e6/uL (3.6-5.1); RED CELL DISTRIBUTION WIDTH 17.1 % (11.7-14.4)
[2019-11-04 19:36] LABS: ALANINE AMINOTRANSFERASE 14 IU/L (0-55); ALBUMIN 3.2 g/dL (3.5-5.0); ALKALINE PHOSPHATASE 98 IU/L (40-150); BLOOD UREA NITROGEN 7 mg/dL (7-26); BUN/CREATININE RATIO 10 (6-25); CALCIUM 9.2 mg/dL (8.4-10.2); CARBON DIOXIDE 28 mmol/L (22-29); CHLORIDE 103 mmol/L (98-107); CREATININE, SERUM 0.73 mg/dL (0.57-1.11); EST GLOMERULAR FILTRATION RATE > 60 ML/MIN (60-); GLUCOSE 142 mg/dL (74-118); LIPASE 20 U/L (8-78); SODIUM 137 mmol/L (136-145)
--- NOTE | 2019-11-04 20:29 | Diagnostic Imaging Report ---
EXAM: CT Abdomen and Pelvis WITHOUT contrast INDICATION: ^rLQ pain COMPARISON: CT dated 09/11/2019 TECHNIQUE: Abdomen and pelvis were scanned utilizing a multidetector helical scanner from the lung base to the pubic symphysis without administration of IV contrast. Absence of intravenous contrast decreases sensitivity for detection of focal lesions and vascular pathology. Coronal and sagittal reformations were obtained. Routine protocol was performed. IV CONTRAST: None ORAL CONTRAST: None COMPLICATIONS: None RADIATION DOSE: Total DLP: 753.14 mGy*cm Estimated effective dose: (DLP x 0.015 x size factor) mSv CTDIvol has been reviewed. It is below the limits set by the Radiation Protocol Committee (RPC). FINDINGS: LINES and TUBES: Partially seen distal leads of cardiac device terminating in right atrium and right ventricle. LOWER THORAX: Unremarkable. Unchanged lingular and lateral right middle lobe scarring. Partially seen groundglass 5 mm left lower lobe nodule (series 2, image 1). HEPATOBILIARY: Unenhanced liver is unremarkable. No biliary ductal dilation. GALLBLADDER: No radio-opaque stones or sludge. No wall thickening. SPLEEN: No splenomegaly. PANCREAS: Atrophic. No focal masses or ductal dilatation. ADRENALS: No adrenal nodules KIDNEYS/URETERS: No hydronephrosis. Limited for evaluation of renal parenchyma without intravenous contrast. No stones. GI TRACT: No abnormal distention, wall thickening, or evidence of bowel obstruction. Appendix is normal. PELVIC ORGANS/BLADDER: Unremarkable. LYMPH NODES: No lymphadenopathy. VESSELS: There is mild to moderate atherosclerotic disease in the aorta and major arterial branches. PERITONEUM / RETROPERITONEUM: No free air or fluid. BONES: Proximal right femoral intramedullary gudelia and nail fixation. Again seen multilevel posterior spinal fusion with T12 vertebroplasty and multilevel degenerative changes. SOFT TISSUES: Unremarkable. IMPRESSION: 1. No definite evidence of acute inflammatory process in the abdomen/pelvis, considering limitations of unenhanced study. 2. Normal appendix. 3. No nephrolithiasis or evidence of obstructive urolithiasis. 4. Incidentally seen 5 mm left lower lobe groundglass nodule. Without risk factors, no follow-up is necessary. With risk factors, follow-up with low-dose chest CT in one year is recommended. Signed by: Dr. Sarthak Ness MD on 11/04/2019 8:25 PM
[2019-11-04] MEDS ORDERED: SODIUM CHLORIDE 0.9% 1000ML 1,000 ML IV SCH (21:27)
[2019-11-04] MEDS: MORPHINE SULFATE INJ 4 MG/ML INJ 1ML IV PRN (22:50)
[2019-11-04] MEDS: ONDANSETRON HCL INJ 2MG/ML 2ML 2 MG/ML VIAL IV PRN (22:50)
[2019-11-04 22:51] LABS: BILIRUBIN,URINE NEGATIVE (NEGATIVE); CLARITY,URINE CLEAR (CLEAR); COLOR,URINE YELLOW (YELLOW); KETONES,URINE NEGATIVE (NEGATIVE); LEUKOCYTE ESTERASE ,URINE NEGATIVE (NEGATIVE); NITRITE,URINE NEGATIVE (NEGATIVE); PROTEIN,URINE DIPSTICK NEGATIVE (NEGATIVE); URINE UROBILINOGEN 0.2 mg/dL (0.2 - 1)
[2019-11-04 23:10] LABS: BACTERIA,URINE RARE /HPF; EPITHELIAL CELLS,URINE FEW /LPF; RBC,URINE 0-5 /HPF (0-5); WBC,URINE (MAN) 0-5 /HPF (0-5)
[2019-11-05] VITALS (9 sets, daily range): BP systolic 128–155; BP diastolic 72–87
--- NOTE | 2019-11-05 00:02 | NUR ---
RECEIVED PATIENT FROM ED AT THIS TIME VIA STRETCHER. AMBULATED TO BED, STEADY, SLOW GAIT NOTED. LUNG SOUNDS CLEAR. BOWEL SOUNDS ACTIVE. ABDOMINAL PAIN 5/10 AT THIS TIME. SKIN INTACT. NONPITTING EDEMA NOTED TO BLE. L FA 20G IV ASYMPTOMATIC, INTACT, AND PATENT, RUNNING NS @ 125ML/HR. BED LOCKED IN LOWEST POSITION, SIDE RAILS UPX2, CALL LIGHT IN REACH.
--- NOTE | 2019-11-05 00:50 | NUR ---
SPOKE WITH MD Duarte RING ABOUT CONSULT, STATES HE WILL SEE HER LATER TODAY.
[2019-11-05] MEDS: ONDANSETRON HCL INJ 2MG/ML 2ML 2 MG/ML VIAL IV PRN ×5 (03:00→20:20)
[2019-11-05] MEDS: MORPHINE SULFATE INJ 4 MG/ML INJ 1ML IV PRN ×5 (03:00→20:20)
--- NOTE | 2019-11-05 05:41 | NUR ---
PATIENT SPO2 IN 80S, 2L O2 VIA NC APPLIED, INCREASED TO 100%. PATIENT STATES SHE HAS COPD AND HAS PRN OXYGEN AT HOME. STATES SHE IS FEELING SOB ON EXERTION ONLY.
[2019-11-05 06:53] LABS: BASOPHILS # (AUTO) 0.1 (0.0-0.1); BASOPHILS % 0.7 % (0.0-1.0); EOSINOPHILS % 0.4 % (0.0-6.0); HEMATOCRIT 34.7 % (34.2-44.1); HEMOGLOBIN 11.2 g/dL (12.0-16.0); LYMPHOCYTES # (AUTO) 2.5 (1.0-3.2); LYMPHOCYTES % 35.9 % (18.0-39.1); MEAN CORPUSCULAR HEMOGLOBIN 29.7 pg (28-32); MEAN CORPUSCULAR HGB CONC 32.3 g/dL (31-35); MONOCYTES % 14.1 % (4.4-11.3); NEUTROPHILS # (AUTO) 3.2 (2.1-6.9); NEUTROPHILS % 46.7 % (38.7-80.0); PLATELET COUNT 401 x10e3/uL (140-360); RED BLOOD COUNT 3.77 x10e6/uL (3.6-5.1); RED CELL DISTRIBUTION WIDTH 17.3 % (11.7-14.4)
--- NOTE | 2019-11-05 07:00 | NUR ---
Received bedside shift report from off going nurse. Patient in stable condition, no s/s of distress noted. Oxygen 2lpm/NC applied. IV fluids running. Bed in lowest position and locked. Call light within reach. All personal items within reach.
[2019-11-05 07:17] LABS: ALANINE AMINOTRANSFERASE 12 IU/L (0-55); ALBUMIN 3.1 g/dL (3.5-5.0); ALKALINE PHOSPHATASE 92 IU/L (40-150); ANION GAP 9.5 mmol/L (8-16); BLOOD UREA NITROGEN < 5 mg/dL (7-26); CALCIUM 9.1 mg/dL (8.4-10.2); CARBON DIOXIDE 31 mmol/L (22-29); CHLORIDE 105 mmol/L (98-107); CREATININE, SERUM 0.73 mg/dL (0.57-1.11); EST GLOMERULAR FILTRATION RATE > 60 ML/MIN (60-); GLUCOSE 105 mg/dL (74-118); POTASSIUM 4.5 mmol/L (3.5-5.1); SODIUM 141 mmol/L (136-145)
[2019-11-05 07:18] LABS: BUN/CREATININE RATIO 7 (6-25)
[2019-11-05] MEDS ORDERED: ALBUTEROL SULFATE HFA 8GM INHALATION AEROSOL INH PRN (09:15)
[2019-11-05] MEDS ORDERED: CLONAZEPAM 0.5 MG TAB PO PRN (09:15)
[2019-11-05 10:04] LABS: ANISOCYTOSIS SLIGHT; LYMPHOCYTES % (MANUAL) 30 % (19-48); MONOCYTES % (MANUAL) 8 % (3.4-9.0); NEUTROPHILS % (MANUAL) 62 % (40-74)
[2019-11-05 10:05] LABS: PLATELET ESTIMATE SLIGHTLY INCREASED; PLATELET MORPHOLOGY COMMENT FEW EDTA CLUMPING; RBC MORPHOLOGY COMMENT NORMAL
[2019-11-05] MEDS: DEXTROSE 5%/0.45% SOD CHL 1,000 ML IV SCH (11:22)
--- NOTE | 2019-11-05 11:25 | NUR ---
Pt. expressed no spiritual or emotional concerns at this time. Ortho Nurse provided hospitality and information on how to reach cigarette tipper, if needed. No need to follow at this time. SONYA ANN Ortho Nurse Spiritual Care Department O: [phone]
--- NOTE | 2019-11-05 11:31 | History and Physical ---
HISTORY OF PRESENT ILLNESS: The patient is 64-year-old female with past medical history positive mainly for chronic pain syndrome, COPD, paroxysmal atrial fibrillation, came to the office yesterday complaining of severe abdominal pain, right upper quadrant abdominal pain with vomiting and diarrhea. The patient was admitted to the hospital. CT of the abdomen showed no significant findings except for noncalcified nodule on the left lower lobe. REVIEW OF SYSTEMS: CARDIOVASCULAR: No chest pain or palpitation. RESPIRATORY: She has chronic shortness of breath on exertion. GASTROINTESTINAL: She had nausea, vomiting, right upper quadrant pain, diarrhea. No blood in the stools. No vomiting blood. GENITOURINARY: No frequency. No dysuria. ALLERGIES: SHE IS ALLERGIC TO CODEINE, IODINE, IODINATED CONTRAST MEDIA AND SULFA ANTIBIOTIC. SOCIAL HISTORY: She used to smoke, she does not smoke anymore. She does not drink. PAST MEDICAL HISTORY: Positive for hypertension, paroxysmal atrial fibrillation, chronic pain syndrome, COPD. PHYSICAL EXAMINATION: VITAL SIGNS: Blood pressure 129/72, heart rate 66 per minute, respiratory rate 20 per minute, temperature 97.4, pulse oximetry 99%. HEART: Showed regular rhythm. Normal S1, S2 sound. LUNGS: Clear bilaterally. ABDOMEN: Soft, nontender. No distention. No visceromegaly. EXTREMITIES: Showed 1+ bilateral pedal edema. LABORATORY DATA: On the CMP; sodium 141, potassium 4.5, chloride 105, CO2 of 31, BUN 5, creatinine 0.73 glucose 105, calcium 9.1, total bilirubin 0.3, AST 14, ALT 12, alkaline phosphatase 92, total protein 6.3, albumin 3.1, globin 3.2, lipase is 20. On the CBC; white blood count is normal at 6.94, hemoglobin 11.2, hematocrit 34.7, and platelet count 401,000. Urinalysis essentially negative. CT of the abdomen showed essentially no significant findings. No nephrolithiasis. Normal appendix. No evidence of any acute inflammatory process in the abdomen and pelvis. She has a 5 mm left lower lobe ground ground-glass nodule, one year CT of the chest is recommended. FINAL IMPRESSION: 1. Abdominal pain of unclear etiology. 2. Vomiting. 3. Chronic obstructive pulmonary disease. 4. Chronic pain syndrome. 5. Paroxysmal atrial fibrillation. PLAN OF TREATMENT: 1. The patient has been placed and started on IV fluids. She has been started on also morphine 4 mg IV q.4 hours as needed , normal saline 125 mL an hour which we are going to decrease to 75 mL an hour, continue with albuterol metered-dose inhaler one inhalation q.6 hours as needed for shortness of breath or wheezing. 2. Continue Klonopin 0.5 mg as needed for anxiety. She is taking Cymbalta 60 mg daily, TriCor 200 mg daily, furosemide 40 mg daily, gabapentin 400 mg q.6 hours. She is also taking [place] 7.5/325 mg tab q.6 hours as needed for mxpyllkz-ew-lenobk pain. She is also on Toprol-XL 50 mg daily. She is also taking omega-3 fatty acid 1000 mg twice a day, Zofran 4 mg IV q.4 hours as needed for nausea and vomiting, Protonix 40 mg daily, Xarelto 20 mg daily for the paroxysmal atrial fibrillation. Continue aldactone 25 mg daily, Zofran 4 mg IV one time has been given. She is taking Abilify 5 mg daily, fenofibrate 200 mg daily, Myrbetriq 50 mg daily, and Requip 0.[address] Rip Bain has been consulted from the Gastroenterology point of view to do an evaluation of this atypical abdominal pain. We will go from there. MD ANGELIA Rodrigues/[facility] /[id number]
[2019-11-05] MEDS: GABAPENTIN 400 MG CAP PO SCH ×3 (13:59→21:54)
[2019-11-05] MEDS: OMEGA 3 POLYUNSAT FATTY ACIDS 1000 MG SOFTGEL PO SCH (16:35)
--- NOTE | 2019-11-05 19:00 | NUR ---
RECEIVED PATIENT IN BEDSIDE SHIFT REPORT. PATIENT RESTING IN BED AT THIS TIME. PAIN 7/10, WITH MOMENTS OF 10/10. NO S&S OF DISTRESS NOTED. BED LOCKED IN LOWEST POSITION, SIDE RAILS UPX2, CALL LIGHT IN REACH.
--- NOTE | 2019-11-05 19:10 | NUR ---
Completed bedside shift report with oncoming nurse. Patient in stable condition, no s/s of distress noted. No pain voiced. IV fluids running. Bed low and locked. Call light within reach. All personal items within reach.
[2019-11-05] MEDS: FENOFIBRATE 200 MG PO SCH (21:00)
[2019-11-05] MEDS: ARIPIPRAZOLE 5 MG TABLET PO SCH (21:54)
[2019-11-05] MEDS: ROPINIROLE HCL 1 MG TAB PO SCH (21:54)
[2019-11-05] MEDS ORDERED: AMITIZA24 MCG PO (23:03)
[2019-11-06] VITALS (8 sets, daily range): BP systolic 107–153; BP diastolic 71–102
[2019-11-06] MEDS: MORPHINE SULFATE INJ 4 MG/ML INJ 1ML IV PRN ×5 (00:25→22:31)
[2019-11-06] MEDS: ONDANSETRON HCL INJ 2MG/ML 2ML 2 MG/ML VIAL IV PRN ×5 (00:25→22:31)
[2019-11-06] MEDS: LUBIPROSTONE 24 MCG CAP PO SCH ×3 (00:26→17:03)
[2019-11-06] MEDS: DEXTROSE 5%/0.45% SOD CHL 1,000 ML IV SCH ×2 (00:26→12:10)
[2019-11-06] MEDS: NON-FORMULARY MEDICATION (Mirabegron (Myrbetriq) 50 MG) PO SCH (09:00)
[2019-11-06] MEDS: FUROSEMIDE 40 MG TAB PO SCH (09:00)
[2019-11-06] MEDS ORDERED: FENOFIBRATE 145 MG TAB PO SCH (09:00)
[2019-11-06] MEDS: OMEGA 3 POLYUNSAT FATTY ACIDS 1000 MG SOFTGEL PO SCH ×2 (09:00→17:03)
[2019-11-06] MEDS: GABAPENTIN 400 MG CAP PO SCH ×4 (09:00→20:09)
--- NOTE | 2019-11-06 10:04 | Progress Note ---
DATE: Internal Medicine Progress Note SUBJECTIVE: The patient is sleeping. PHYSICAL EXAMINATION: HEART: Showed regular rhythm. Normal S1 and S2 sound. LUNGS: Clear bilaterally. ABDOMEN: Soft. EXTREMITIES: Show no edema. FINAL IMPRESSION: 1. Abdominal pain. 2. Nausea and vomiting. 3. Paroxysmal atrial fibrillation. 4. History of chronic obstructive pulmonary disease. 5. Chronic pain syndrome. PLAN OF TREATMENT: Going to continue current medication regimen. The patient is going for an EGD today. She has been started on Amitiza. Going to continue with Xarelto 20 mg daily, Protonix 40 mg daily, metoprolol 50 mg daily, gabapentin 400 mg q.6 hours, furosemide 40 mg daily, Cymbalta 60 mg daily, and D5 half normal saline at 75 mL an hour. Continue aldactone 25 mg daily. She is taking aripiprazole 5 mg at bedtime, Requip 0.5 mg at bedtime, Amitiza 25 mcg twice a day, clonazepam 0.5 mg daily as needed, [place] 1 tablet every 6 hours as needed for pain, Zofran 4 mg IV q.4 hours as needed, morphine 4 mg IV q.4 hours as needed, and albuterol inhaler q.6 hours as needed for shortness of breath. The patient is going to have an EGD done today to investigate more about atypical abdominal pain. CT of the abdomen showed no significant abnormality to explain the pain. Blood work has been unremarkable. MD ANGELIA Rodrigues/[place] /[id number]
[2019-11-06] MEDS ORDERED: FENTANYL CITRATE/PF 100MCG/2 ML INJ ONE ×2 (16:06→19:59)
[2019-11-06] MEDS: PANTOPRAZOLE SOD 40 MG TABEC PO SCH (17:00)
[2019-11-06] MEDS: METOPROLOL SUCCINATE 50 MG TAB XL PO SCH (17:01)
[2019-11-06] MEDS: DULOXETINE HCL 30 MG DELAYED RELEASE PO SCH (17:01)
[2019-11-06] MEDS: SPIRONOLACTONE 25 MG TAB PO SCH (17:01)
[2019-11-06] MEDS: RIVAROXABAN 20 MG TABLET PO SCH (17:02)
[2019-11-06] MEDS ORDERED: PROPOFOL IV EMULSION 10 MG/ML 20 ML VIAL ONE (19:41)
[2019-11-06] MEDS ORDERED: LIDOCAINE HCL 2% LOCAL INJ 5 ML SDV VIAL INJ ONE (19:41)
--- NOTE | 2019-11-06 20:05 | NUR ---
PATIENT IS RESTING IN BED IN STABLE CONDITION, NO SIGNS OF DISTRESS NOTED. IV FLUIDS ARE RUNNING AT ORDERED RATE AND PATIENT VOICES PAIN IN HER HEAD AT A LEVEL OF 8 AND WILL BE MEDICATED ORDERED. NASAL CANNULA IS INTACT AND FLOWING AT 2 LITERS. BED IS IN LOWEST POSITION, BOTH SIDE RAILS ARE UP, CALL LIGHT IS WITHIN EASY REACH, WILL CONTINUE TO MONITOR.
[2019-11-06] MEDS: HYDROCODONE/APAP 7.5MG-325MG 1 EA TAB PO PRN (20:08)
[2019-11-06] MEDS: FENOFIBRATE 200 MG PO SCH (20:09)
[2019-11-06] MEDS: ARIPIPRAZOLE 5 MG TABLET PO SCH (20:09)
[2019-11-06] MEDS: ROPINIROLE HCL 1 MG TAB PO SCH (20:09)
--- NOTE | 2019-11-06 20:22 | Operative Report ---
DATE OF PROCEDURE: 11/06/2019 SURGEON: Rip Bain MD PROCEDURE: EGD with esophageal dilatation and biopsies. INDICATIONS FOR PROCEDURE: Dysphagia to solids, upper abdominal pain exacerbated with meals. MEDICATIONS: The patient was done under MAC, please see anesthesiologist's note. PROCEDURE IN DETAIL: With the patient in left lateral decubitus position, a flexible fiberoptic Olympus gastroscope was introduced into the esophagus under direct visualization without any difficulty. There were some patchy erythema noted in distal esophagus. A mild stricture was noted at the GE junction, that was dilated to size 52-Honduran Ruelas. The scope was then advanced with ease into the stomach. Mucosa overlying the antrum and the body revealed some patchy erythema and upwi-ti-qpsxwedo edema, and biopsies were obtained, sent to stain for H pylori. Pylorus was of normal contour and shape, it was intubated with ease and the scope was advanced all the way to the second portion of the duodenum. The scope was then withdrawn slowly. Mucosa overlying the proximal second portion and the duodenal bulb appeared to be within normal limits. The scope was then withdrawn back into the stomach and retroflexed. Mucosa overlying the fundus and the cardia appeared to be within normal limits. The scope was then straightened out, it was subsequently withdrawn. The patient tolerated the procedure well. IMPRESSION: 1. Distal esophagitis, mild. 2. Esophageal stricture at GE junction, dilated to size 52-Honduran Ruelas. 3. Gastritis, biopsied. Biopsies sent to stain for Helicobacter pylori. PLAN: Follow up histology. Protonix 40 mg one p.o. q.a.m. before meals. Findings do not necessarily explain the patient's abdominal pain, might benefit from a colonoscopy. Rip Bain MD [facility] [place] /[id number] cc: Leonardo Peng MD
[2019-11-06] MEDS ORDERED: BISACODYL 5 MG TAB EC PO ONE (23:15)
--- NOTE | 2019-11-06 23:30 | NUR ---
DR. RING INFORMED PATIENT OF COLONOSCOPY TOMORROW. CONSENT WILL BE SIGNED AND BOWEL PREP TO BE STARTED.
[2019-11-07] VITALS (8 sets, daily range): BP systolic 105–157; BP diastolic 69–81
[2019-11-07] MEDS ORDERED: BISACODYL 5 MG TAB EC PO ONE ×2 (00:30)
[2019-11-07] MEDS: HYDROCODONE/APAP 7.5MG-325MG 1 EA TAB PO PRN ×4 (00:35→20:34)
[2019-11-07] MEDS: DEXTROSE 5%/0.45% SOD CHL 1,000 ML IV SCH (02:49)
[2019-11-07] MEDS: ONDANSETRON HCL INJ 2MG/ML 2ML 2 MG/ML VIAL IV PRN (02:49)
[2019-11-07] MEDS: MORPHINE SULFATE INJ 4 MG/ML INJ 1ML IV PRN ×5 (02:49→22:06)
[2019-11-07] MEDS ORDERED: CITRATE OF MAGNESIA 300ML BOTTLE PO ONE ×2 (05:00→07:00)
[2019-11-07] MEDS: PANTOPRAZOLE SOD 40 MG TABEC PO SCH (07:30)
[2019-11-07] MEDS: OMEGA 3 POLYUNSAT FATTY ACIDS 1000 MG SOFTGEL PO SCH ×2 (09:00→16:08)
[2019-11-07] MEDS: GABAPENTIN 400 MG CAP PO SCH ×4 (09:00→22:05)
[2019-11-07] MEDS: METOPROLOL SUCCINATE 50 MG TAB XL PO SCH (09:00)
[2019-11-07] MEDS: LUBIPROSTONE 24 MCG CAP PO SCH ×2 (09:00→16:08)
[2019-11-07] MEDS: FUROSEMIDE 40 MG TAB PO SCH (09:00)
[2019-11-07] MEDS: DULOXETINE HCL 30 MG DELAYED RELEASE PO SCH (09:00)
[2019-11-07] MEDS: SPIRONOLACTONE 25 MG TAB PO SCH (09:00)
[2019-11-07] MEDS: NON-FORMULARY MEDICATION (Mirabegron (Myrbetriq) 50 MG) PO SCH (09:00)
--- NOTE | 2019-11-07 09:57 | NUR ---
PATIENT AAOX3. ACYANOTIC. TRANSFERRED OFF UNIT VIA BED BY TRANSPORT STAFF TO OR FOR SCHEDULED COLONOSCOPY. NO DISTRESS NOTED. PT REFUSED OXYGEN. O2 SAT AT96 PERCENT ON ROOM AIR
--- NOTE | 2019-11-07 10:14 | Progress Note ---
DATE: Internal Medicine Progress Note SUBJECTIVE: The patient is still complaining of abdominal pain and back pain now. She has had an EGD done by Dr. Rip Bain, which showed some esophagitis with mild some distal esophageal stricture, which was dilated and gastritis. The patient is going to have a colonoscopy today to find out more about the abdominal pain. PHYSICAL EXAMINATION: ABDOMEN: Soft and nontender. No distention. No visceromegaly. EXTREMITIES: Show no edema. FINAL IMPRESSION: 1. Abdominal pain. 2. Vomiting. 3. Chronic obstructive pulmonary disease. 4. Chronic pain syndrome. 5. Paroxysmal atrial fibrillation. 6. . PLAN OF TREATMENT: The patient going to go for colonoscopy. Going to a CT of the lumbar spine because of back pain also. We are going to discontinue the fluid as she is getting. Going to continue rest of the medications, which include furosemide 40 mg daily, albuterol metered-dose inhaler one inhalation q.6 hours as needed for shortness of breath, Abilify 5 mg daily, Dulcolax 20 mg one time. She is taking also clonazepam 0.5 mg daily as needed for anxiety, Cymbalta 60 mg daily, furosemide 40 mg daily, gabapentin 400 mg q.6 hours, [place] 7.5/325 one tablet q.6 hours as needed, for moderate pain, Amitiza 24 mcg twice a day, metoprolol 50 mg daily, morphine 4 mg IV q.4 hours as needed for severe pain. [place]-3 fatty acids 1000 mg twice a day, Zofran 4 mg IV q.4 hours as needed for nausea and vomiting, Protonix 40 mg daily. She is also taking Xarelto 20 mg daily, Requip 0.5 mg at bedtime, Aldactone 25 mg daily, fenofibrate 200 mg daily, mg daily. We are going to put Xarelto hold in the meantime. We are going . CT of the lumbar spine has been ordered without contrast because the patient is allergic to iodine. MD ANGELIA Rodrigues/[facility] /[id number]
[2019-11-07] MEDS ORDERED: FENTANYL CITRATE/PF 100MCG/2 ML INJ ONE ×2 (11:22→18:57)
--- NOTE | 2019-11-07 13:45 | Operative Report ---
DATE OF PROCEDURE: 11/07/2019 SURGEON: Rip Bain MD PROCEDURE: Colonoscopy. INDICATIONS FOR COLONOSCOPY: Right-sided abdominal pain at times severe, unremarkable CT of abdomen and pelvis, and personal history of colon polyps. MEDICATIONS: The patient was done under MAC, please see anesthesiologist's note. PROCEDURE IN DETAIL: With the patient in the left lateral decubitus position, a flexible fiberoptic Olympus colonoscope was inserted into the rectum with ease and advanced all the way to the cecum. There was some retained stools in the colon, but visualization overall was fair. The scope was then withdrawn slowly and whatever was visualized the mucosa overlying the cecum, ascending colon, transverse colon, and descending colon appeared to be within normal limits. Diverticular disease was noted to involve the sigmoid colon. Rectum grossly appeared to be within normal limits. The scope was then retroflexed into the distal rectum and small internal hemorrhoids were noted, none of which was actively bleeding. The scope was then straightened out, it was subsequently withdrawn, and the patient tolerated the procedure well. IMPRESSION: 1. Suboptimal prep, but visualization was fair. 2. Diverticulosis. 3. Internal hemorrhoids, none actively bleeding. PLAN: Initiate high-fiber, low-fat diet. Initiate high-fiber supplement. The patient might benefit from a followup colonoscopy in 5 to 10 years. Rip Bain MD [facility] [place] /[id number] cc: Leonardo Peng MD
[2019-11-07] MEDS ORDERED: FLUTICASONE PROPIONATE NASAL SPRAY NS PRN (16:30)
[2019-11-07] MEDS ORDERED: PROPOFOL IV EMULSION 10 MG/ML 20 ML VIAL ONE (18:36)
[2019-11-07] MEDS ORDERED: LIDOCAINE HCL 2% LOCAL INJ 5 ML SDV VIAL INJ ONE (18:36)
[2019-11-07] MEDS: FENOFIBRATE 200 MG PO SCH (21:00)
[2019-11-07] MEDS: ROPINIROLE HCL 1 MG TAB PO SCH (22:05)
[2019-11-07] MEDS: ARIPIPRAZOLE 5 MG TABLET PO SCH (22:05)
[2019-11-08] VITALS (10 sets, daily range): BP systolic 96–174; BP diastolic 55–90
[2019-11-08] MEDS: MORPHINE SULFATE INJ 4 MG/ML INJ 1ML IV PRN ×4 (03:32→23:43)
[2019-11-08] MEDS: HYDROCODONE/APAP 7.5MG-325MG 1 EA TAB PO PRN ×2 (05:34→21:37)
[2019-11-08] MEDS: OMEGA 3 POLYUNSAT FATTY ACIDS 1000 MG SOFTGEL PO SCH ×2 (08:09→18:35)
[2019-11-08] MEDS: METOPROLOL SUCCINATE 50 MG TAB XL PO SCH (08:09)
[2019-11-08] MEDS: LUBIPROSTONE 24 MCG CAP PO SCH ×2 (08:09→17:00)
[2019-11-08] MEDS: DULOXETINE HCL 30 MG DELAYED RELEASE PO SCH (08:09)
[2019-11-08] MEDS: GABAPENTIN 400 MG CAP PO SCH ×4 (08:09→21:36)
[2019-11-08] MEDS: FUROSEMIDE 40 MG TAB PO SCH (08:09)
[2019-11-08] MEDS: PANTOPRAZOLE SOD 40 MG TABEC PO SCH (08:09)
[2019-11-08] MEDS: SPIRONOLACTONE 25 MG TAB PO SCH (08:09)
[2019-11-08] MEDS: NON-FORMULARY MEDICATION (Mirabegron (Myrbetriq) 50 MG) PO SCH (09:00)
[2019-11-08] MEDS: RIVAROXABAN 20 MG TABLET PO SCH ×2 (09:41→09:42)
[2019-11-08] MEDS ORDERED: FENTANYL 25 MCG/HR PATCH TOP SCH (15:30)
--- NOTE | 2019-11-08 17:08 | Progress Note ---
DATE: Internal Medicine Progress Note SUBJECTIVE: The patient is complaining of severe back pain. The patient does not want to go home until she gets heavy narcotics. She is having chronic back pain for a while. PHYSICAL EXAMINATION: HEART: Showed regular rhythm. Normal S1 and S2 sound. LUNGS: Clear bilaterally. ABDOMEN: Soft. VITAL SIGNS: Temperature 96.8, heart rate 78 per minute, respiratory rate 18 per minute, blood pressure 120/73, oxygen saturation 94%. FINAL IMPRESSION: Abdominal pain. EGD and colonoscopy did not show any significant abnormality to explain the severe abdominal pain. CT of the abdomen showed no significant abnormality to explain the pain either. We are going to consult Dr. Mcmahon for pain management since the patient is refusing to go home without a heavy-duty narcotic before she goes home. Continue current medication regimen. In the meantime, she is on albuterol metered-dose inhaler q. 6 hours as needed for shortness of breath, Abilify 5 mg daily, clonazepam 0.5 mg daily as needed for anxiety, Cymbalta 60 mg daily. She is taking Flonase 2 inhalation daily, furosemide 40 mg daily, gabapentin 400 mg q.6 hours, [place] 7.5/325 q.6 hours as needed for eodwijqq-ke-assovz pain, Amitiza 24 mcg twice a day, metoprolol 50 mg daily, morphine 4 mg IV q.4 hours as needed for severe pain, omega-3 fatty acids 1000 mg twice a day, Zofran 4 mg IV q.4 hours as needed for nausea and vomiting, Protonix 40 mg daily, Xarelto 20 mg daily, Requip 0.5 mg at bedtime, Aldactone 25 mg daily, fenofibrate 200 mg daily, Myrbetriq 50 mg daily. We are going to get a pain management consult with Dr. Mcmahon for management of the pain since the patient has severe excruciating back pain and all the workup for abdominal pain has been negative. MD ANGELIA Rodrigues/[place] /[id number]
[2019-11-08] MEDS: FENOFIBRATE 200 MG PO SCH (21:00)
[2019-11-08] MEDS: ROPINIROLE HCL 1 MG TAB PO SCH (21:36)
[2019-11-08] MEDS: ARIPIPRAZOLE 5 MG TABLET PO SCH (21:36)
[2019-11-08] MEDS ORDERED: CHLORDIAZEPOXIDE/CLIDINIUM 1 CAP PO ONE (23:15)
[2019-11-09 00:01] VITALS: BP 115/67
[2019-11-09] MEDS: MORPHINE SULFATE INJ 4 MG/ML INJ 1ML IV PRN ×3 (03:31→12:10)
[2019-11-09 04:00] VITALS: BP 113/68
[2019-11-09 08:28] VITALS: BP 122/83
[2019-11-09 08:39] VITALS: BP 122/83
[2019-11-09] MEDS ORDERED: CHLORDIAZEPOXIDE/CLIDINIUM 1 CAP PO SCH (09:00)
[2019-11-09] MEDS: NON-FORMULARY MEDICATION (Mirabegron (Myrbetriq) 50 MG) PO SCH (09:00)
[2019-11-09] MEDS: RIVAROXABAN 20 MG TABLET PO SCH (09:51)
[2019-11-09] MEDS: METOPROLOL SUCCINATE 50 MG TAB XL PO SCH (09:51)
[2019-11-09] MEDS: SPIRONOLACTONE 25 MG TAB PO SCH (09:51)
[2019-11-09] MEDS: DULOXETINE HCL 30 MG DELAYED RELEASE PO SCH (09:51)
[2019-11-09] MEDS: GABAPENTIN 400 MG CAP PO SCH (09:51)
[2019-11-09] MEDS: PANTOPRAZOLE SOD 40 MG TABEC PO SCH (09:51)
[2019-11-09] MEDS: LUBIPROSTONE 24 MCG CAP PO SCH (09:51)
[2019-11-09] MEDS: FUROSEMIDE 40 MG TAB PO SCH (09:51)
[2019-11-09] MEDS: OMEGA 3 POLYUNSAT FATTY ACIDS 1000 MG SOFTGEL PO SCH (09:51)
[2019-11-09] MEDS: HYDROCODONE/APAP 7.5MG-325MG 1 EA TAB PO PRN (09:52)
--- NOTE | 2019-11-09 12:00 | NUR ---
IMM letter delivered and explained to pt. She verbalized understanding. Signed copy placed in chart. Copy to pt.
--- NOTE | 2019-11-09 13:11 | Discharge Summary ---
HOSPITAL COURSE: A 64-year-old female with past medical history positive for paroxysmal atrial fibrillation, hypertension, COPD, chronic pain syndrome, came to the hospital complaining of severe abdominal pain. Workup was essentially unremarkable. CT of the abdomen did not show any significant abnormality. EGD showed gastritis. Colonoscopy showed diverticulosis. The patient is complaining of severe low back pain, which is chronic. She had a relapse on the chronic back pain. The patient has been seen by Dr. Rip Bain, for Gastroenterology. I consulted Dr. Mcmahon for pain management and to manage the pain. The patient going home today. She want to see Dr. Moran, neurosurgeon for her back issues. PHYSICAL EXAMINATION: HEART: Showed regular rhythm. Normal S1, S2 sound. LUNGS: Clear bilaterally. ABDOMEN: Soft. VITAL SIGNS: Blood pressure 132/83, temperature 95.5, heart rate 60 per minute, respiratory rate 18 per minute, and O2 saturation 96%. LABORATORY DATA: On the blood work, white blood count 6.94, hemoglobin 11.2, hematocrit 34.7, and platelet count 401,000. On the BMP; sodium of 141, potassium 4.5, chloride 105, CO2 of 31, BUN 5 and creatinine 0.73, glucose 142, calcium 9.1, total bilirubin 0.3, AST 14, ALT 12, alkaline phosphatase 92, total protein 6.3, albumin 3.1, globulin 3.2, lipase is 20. IMPRESSION: 1. Abdominal pain of unknown etiology. 2. Paroxysmal atrial fibrillation. 3. Chronic obstructive pulmonary disease. 4. Chronic pain syndrome. PLAN OF TREATMENT: The patient will be discharged home with instruction to follow up with Dr. Mcmahon for pain management, Dr. Moran for chronic back pain, I myself also for followup in a week. Continue albuterol q.6 hours as needed for shortness of breath. Abilify 5 mg at bedtime, one tablet three times a day, clonazepam 0.5 mg daily as needed for anxiety, Cymbalta 60 mg daily, fentanyl patch 25 mcg q.72 hours, Flonase 2 inhalation daily as needed, furosemide 40 mg daily, gabapentin 400 mg q.6 hours, [place] 7.5/325 q.6 hours as needed for severe pain, Amitiza 24 mcg p.o. twice a day, metoprolol 50 mg daily. Continue with omega-3 fatty acids 1000 mg twice a day, Zofran 4 mg p.o. every 4 hours as needed for nausea and vomiting, Protonix 40 mg daily, Xarelto 20 mg daily, Requip 0.5 mg at bedtime, Aldactone 25 mg daily, fenofibrate 200 mg daily, Myrbetriq 50 mg daily. MD ANGELIA Rodrigues/[place] /[id number]
== END 2019-11-09 12:52 | disposition home or self-care (01) | DRG 392 ==
LOC: ER 18:47 → ERHOLD 23:29 → MED/SURG 11-05 00:05 → OBSVTOIN 11-05 14:53
PROVIDERS: ADMIT Internal Medicine; ATTEND Internal Medicine
PROC: 0DB78ZX Excision of Stomach, Pylorus, Via Natural or Artificial Opening Endoscopic, Diagnostic (ICD-10-PCS; principal; 2019-11-06 12:00)
PROC: 0D748ZZ Dilation of Esophagogastric Junction, Via Natural or Artificial Opening Endoscopic (ICD-10-PCS; 2019-11-06 12:00)
PROC: 0DJD8ZZ Inspection of Lower Intestinal Tract, Via Natural or Artificial Opening Endoscopic (ICD-10-PCS; 2019-11-07)
DX: K22.2 Esophageal obstruction (principal); K29.70 Gastritis, unspecified, without bleeding; R10.9 Unspecified abdominal pain; J44.9 Chronic obstructive pulmonary disease, unspecified; I48.0 Paroxysmal atrial fibrillation; R11.10 Vomiting, unspecified; G89.4 Chronic pain syndrome; K57.90 Diverticulosis of intestine, part unspecified, without perforation or abscess without bleeding; K64.8 Other hemorrhoids; Z86.010 Personal history of colon polyps; Z79.01 Long term (current) use of anticoagulants
CPT/HCPCS: 36415; 43239; 43450; 45378; 74176; 80053; 81001; 82948; 83690; 85025; 88305; 88312; 99284; G0378; J2001; J2270; J2405; J3010; J7030